=== PATIENT | female | born 1970 | race Two or more races ===

== ENCOUNTER 2017-02-13 14:58 | Emergency (ER) | payer MEDICAID ==
[~2017-02-13] VITALS: Ht 157.5 cm; Wt 82.1 kg
[2017-02-13 15:41] LABS: Basophils # (auto) 0 uL; Basophils % (auto) 0.2 % (0.0-2.0); Eosinophils # (auto) 0 uL; Eosinophils % (auto) 0.7 % (0.0-7.0); Hemoglobin 15.1 g/dL (12.2-16.2); Lymphocytes # (auto) 1.3 uL; Lymphocytes % (auto) 22.3 % (10.0-50.0); Mean Corpuscular Hemoglobin 32.2 pg (28.0-32.0); Mean Corpuscular Hgb Conc. 34.2 g/dL (32.0-36.0); Mean Corpuscular Volume 94.2 fL (80.0-100.0); Mean Platelet Volume 10.3 fL (7.4-10.4); Monocytes # (auto) 0.6 uL; Neutrophils % (auto) 66.8 % (37.0-80.0); Nucleated Red Blood Cells % 0.1 %; Platelet Count (auto) 159 10^3/uL (140-450); Red Cell Distribution Width 12.8 % (11.6-16.0); White Blood Cell 5.9 10^3/uL (4.4-10.8)
[2017-02-13 16:09] LABS: Albumin 3.7 g/dL (3.4-5.0); Alkaline Phosphatase 69 U/L (45-117); Anion Gap 5 (5-15); Aspartate Aminotransferase 7 U/L (15-37); BUN/Creatinine Ratio 23.6; Bilirubin, Total 0.5 mg/dL (0.2-1.0); Blood Urea Nitrogen 13 mg/dL (7-18); Calcium 8.7 mg/dL (8.5-10.1); Carbon Dioxide 28 mmol/L (21-32); Chloride 106 mmol/L (98-107); GFR African American 152 mL/min; GFR Non-African American 125 mL/min; Glucose 85 mg/dL (74-106); Magnesium 2.5 mg/dL (1.6-2.6); Potassium 3.5 mmol/L (3.5-5.1); Sodium 139 mmol/L (136-145); Total Protein 6.9 g/dL (6.4-8.2)
[2017-02-13] MEDS ORDERED: SODIUM CHLORIDE 0.9% 1,000 ML IV ONE (16:15)
[2017-02-13 17:30] LABS: Urine Bilirubin Negative (Negative); Urine Blood Negative /uL (Negative); Urine Color Yellow (Yellow); Urine Glucose Normal (Normal); Urine Ketone Negative (Negative); Urine Mucus FEW (None Seen); Urine Nitrite Negative (Negative); Urine RBC 2 /hpf (0 - 4); Urine Squamous Epithelial Cell MOD /hpf (<5); Urine Urobilinogen Normal (Negative); Urine pH 5.5 (5.0-8.0)
[2017-02-13 18:06] VITALS: BP 147/79
== END 2017-02-13 18:15 | disposition home or self-care (01) ==
LOC: ER 15:06
DX: E86.0 Dehydration (principal); N39.0 Urinary tract infection, site not specified; I95.9 Hypotension, unspecified; I10 Essential (primary) hypertension; J45.909 Unspecified asthma, uncomplicated
CPT/HCPCS: 36415; 71020; 80053; 81001; 83735; 84484; 85025; 93005; 96360; 99285; J7030

== ENCOUNTER 2021-06-18 18:00 | Emergency (ER) | payer MEDICAID ==
[~2021-06-18] VITALS: Ht 165.1 cm; Wt 81.6 kg
[2021-06-18 22:52] LABS: Basophils # (auto) 0 10 ^3/uL (0-0.2); Basophils % (auto) 0.2 % (0.0-2.0); Eosinophils # (auto) 0 10 ^3/uL (0-0.8); Eosinophils % (auto) 0.3 % (0.0-7.0); Hematocrit 45.6 % (36.0-46.0); Hemoglobin 15.3 g/dL (12.2-16.2); Lymphocytes # (auto) 0.6 10 ^3/uL (0.4-5.4); Lymphocytes % (auto) 7.6 % (10.0-50.0); Mean Corpuscular Hgb Conc. 33.7 g/dL (32.0-36.0); Mean Corpuscular Volume 92.2 fL (80.0-100.0); Monocytes # (auto) 0.5 10 ^3/uL (0-1.3); Monocytes % (auto) 6.7 % (0.0-12.0); Neutrophils # (auto) 6.3 10 ^3/uL (1.6-8.6); Neutrophils % (auto) 85.2 % (37.0-80.0); Nucleated Red Blood Cells % 0.1 %; Red Blood Cells 4.94 10^6/uL (4.0-5.20); White Blood Cell 7.4 10^3/uL (4.4-10.8)
[2021-06-18] MEDS ORDERED: IOHEXOL 350 MG/ML 100ML IJ ONE (23:25)
[2021-06-19 01:21] LABS: Albumin 3.7 g/dL (3.4-5.0); Calcium 8.4 mg/dL (8.5-10.1); Magnesium 3.1 mg/dL (1.6-2.6); Potassium 4.2 mmol/L (3.5-5.1)
[2021-06-19 01:25] LABS: BUN/Creatinine Ratio 26.8; Bilirubin, Total 0.5 mg/dL (0.2-1.0); Total Protein 6.7 g/dL (6.4-8.2)
[2021-06-19 08:40] VITALS: BP 126/71
== END 2021-06-19 09:06 | disposition short-term general hospital (02) ==
LOC: ER 18:00 → EDBD 18:00 → ER 06-19 09:06
DX: I60.9 Nontraumatic subarachnoid hemorrhage, unspecified (principal); J45.909 Unspecified asthma, uncomplicated; Z90.710 Acquired absence of both cervix and uterus
CPT/HCPCS: 36415; 70450; 70496; 70498; 71045; 80053; 80320; 83735; 84484; 85025; 93005; 99291; Q9967

== ENCOUNTER 2024-11-16 14:36 | Inpatient (IN) | payer MEDICAID ==
[~2024-11-16] VITALS: Ht 157.5 cm; Wt 86.0 kg
--- NOTE | 2024-11-16 15:28 | ED.PDOC ---
GI ASSESSMENT HPI Comments 54-year-old female presents with a chief complaint of abdominal pain. Patient states that she recently had a colonoscopy on last night. Patient mentions that her pain is localized to her bilateral upper quadrants and radiates into her right flank. Patient mentions that this pain feels similar to when she has flare up of her degenerative disc disease. Patient rates her pain a 9/10 and describes as sharp. PMHx: HLD, Heart Murmur, Asthma, HTN, Degenerative Disc Disease PSHx: Hysterectomy, Colonoscopy Alvalos: DDD HPI: Poor Historian. REVIEW OF SYSTEMS: CONSTITUTIONAL: Denies acute: fever, diaphoresis, chills, generalized weakness. HEAD: Denies acute: headache, photophobia Eyes: Denies acute: Double vision, vision loss, eye pain, eye discharge. EARS: Denies acute: tinnitus, hearing loss, ear discharge, ear pain, THROAT: Denies acute: sore throat, swelling, difficulty swallowing , pain with swallowing, change in voice. NECK: Denies acute: neck pain, neck swelling, stiff neck. HEART: Denies acute : chest pain, palpitations, LUNGS: Denies acute: SOB, wheezing, cough, hemoptysis ABDOMEN: Denies acute: Vomiting, diarrhea, melena , hematemesis, hematochezia SKIN: Denies acute: rash, redness, lesions, itchiness. EXTREMITIES: Denies acute: calf pain, numbness, tingling, weakness, denies pain in extremity. Denies acute: Low back pain. Neuro: Denies acute: focal neurological deficit, motor or sensory focal neurological deficit, tremors, seizure like activity, confusion, dizziness, change in mental status, loss of bowel or bladder function, cauda equina like symptoms. : Denies acute: dysuria, hematuria, flank pain, increase in urinary frequency. PSYCH: Denies acute: hallucination, suicidal ideation, homicidal ideation. FEMALE: Denies acute: abnormal vaginal bleeding, foul odor, unusual discharge. PHYSICAL EXAM: General: ---mild-----acute distress, awake and alert. Head: normocephalic, atraumatic. Neck: supple, trachea is midline, no swelling. Throat: Normal phonation. Eyes:, no erythema, no purulent discharge, no proptosis, no icterus. Heart: regular rate, regular rhythm, no significant murmur appreciated. Lungs: no apparent respiratory distress, Able to speak in full sentences. No wheezing, no rhonchi, no crackles. No stridors Clear to auscultation bilaterally. Abdomen: Mild nonspecific generalized bilateral mid abdomen tender to palpation, non distended, soft, no guarding, no rebound, + bowel sounds. Neuro: Awake, Alert, oriented to name, self, situation, follows commands GCS=15. Speech is normal. Skin: no petechia, no purpura, no cyanosis, non-pale, not jaundice. Lower extremities: --no - Pitting edema no deformity, no focal swelling, no calf TTP. Makes eye contact. moves all four extremities. Face: no apparent facial droop. No CVA tenderness to percussion bilaterally. Ambulating in the ED independently. No nuchal rigidity, Kernig's sign, Brudzinski's sign, no meningeal signs. ED COURSE: Chief Complaint: Abdominal Pain Time Seen by MD: 15:20 Primary Care Provider: none Reviewed Notes: Medications, Allergies Allergies: Coded Allergies: NO KNOWN ALLERGIES (Unverified , 07/30/15) Home Meds Reported Medications Atorvastatin Calcium (Lipitor) 80 Mg Tab, 1 TAB PO DAILY, #30 TAB 5 Refills 11/17/24 Metoprolol Succinate (Metoprolol Succinate Er) 25 Mg Tab, 1 TAB PO DAILY 11/17/24 Atorvastatin Calcium (ATORVASTATIN CALCIUM) 80 Mg Tab, 1 TAB PO DAILY 11/17/24 Albuterol Sulfate (Albuterol Sulfate Hfa) 108 Mcg/Act Aer, INH 11/17/24 Information Source: Patient Mode of Arrival: Ambulatory Past Medical History PAST MEDICAL HISTORY: Asthma, High Lipids, HTN Surgical History: Hysterectomy ZINC PLATER History: No Pertinent ZINC PLATER History Family History Family History: Reviewed,noncontributory to illness Social History Smoker: Non-Smoker Alcohol: Occasionally Drugs: Denies Drug Use Lives In: Home Was a procedure done? Was a procedure done?: No GI differential Dx Differential Diagnosis: Other (DDX include Diverticulitis, colitis, gastroenteritis, acute abdomen, SBO, enteritis, constipation, volvulus, appendicitis, Gallbladder disease, choledocolithiasis, ascending cholangitis, pancreatitis, intraAbdominal mass/neoplasm, hepatitis, UTI, pylonephritis, kidney stone, aneurysm, dissection, Inflammatory bowel disease, gastroparesis, ischemic bowel, ovarian torsion, ovarian cyst/mass, tubo-ovarian abscess, , PID, STD.) X-Ray, Labs, Meds, VS Vital Signs Date Time Temp Pulse Resp B/P (MAP) Pulse Ox O2 Delivery O2 Flow Rate FiO2 11/16/24 19:10 98.2 81 20 112/70 (84) 98 98.2 11/16/24 18:45 81 20 98 Room Air* 0 21 11/16/24 16:48 98.6 75 24 129/70 (89) 96 98.6 11/16/24 15:41 84 11/16/24 14:51 98.2 81 14 133/70 (91) 97 98.2 Lab Test 11/16/24 16:19 11/16/24 15:22 11/16/24 14:57 Range/Units Troponin I High Sensitivity 3 L 4 </=34 ng/L Triglycerides Level 87 < 150 mg/dL Cholesterol Level 154 < 200 mg/dL LDL Cholesterol 81 < 100 mg/dL HDL Cholesterol 55 40-59 mg/dL White Blood Count 7.3 4.4-10.8 10^3/uL Red Blood Count 4.80 4.0-5.20 10^6/uL Hemoglobin 15.2 12.2-16.2 g/dL Hematocrit 43.8 36.0-46.0 % Mean Corpuscular Volume 91.4 80.0-100.0 fL Mean Corpuscular Hemoglobin 31.7 28.0-32.0 pg Mean Corpuscular Hemoglobin Concent 34.7 32.0-36.0 g/dL Red Cell Distribution Width 13.4 11.8-14.3 % Platelet Count 141 140-450 10^3/uL Mean Platelet Volume 9.6 6.9-10.8 fL Neutrophils (%) (Auto) 68.1 37.0-80.0 % Lymphocytes (%) (Auto) 20.5 10.0-50.0 % Monocytes (%) (Auto) 9.9 0.0-12.0 % Eosinophils (%) (Auto) 1.0 0.0-7.0 % Basophils (%) (Auto) 0.5 0.0-2.0 % Neutrophils # (Auto) 5.0 1.6-8.6 10 ^3/uL Lymphocytes # (Auto) 1.5 0.4-5.4 10 ^3/uL Monocytes # (Auto) 0.7 0-1.3 10 ^3/uL Eosinophils # (Auto) 0.1 0-0.8 10 ^3/uL Basophils # (Auto) 0 0-0.2 10 ^3/uL Nucleated Red Blood Cells 0.1 % Sodium Level 147 H 136-145 mmol/L Potassium Level 3.9 3.5-5.1 mmol/L Chloride Level 108 H 98-107 mmol/L Carbon Dioxide Level 31 20-31 mmol/L Anion Gap 8 5-15 Blood Urea Nitrogen 7 L 9-23 mg/dL Creatinine 0.63 0.550-1.02 mg/dL Glomerular Filtration Rate Calc 104 >90 mL/min BUN/Creatinine Ratio 11.1 10.0-20.0 Serum Glucose 87 74-106 mg/dL Hemoglobin A1c 5.4 <5.7 % A1C Lactic Acid Level 1.0 0.4-2.0 mmol/L Calcium Level 10.0 8.7-10.4 mg/dL Total Bilirubin 1.6 H 0.2-1.0 mg/dL Aspartate Amino Transferase (AST) 99 H 13-40 U/L Alanine Aminotransferase (ALT) 100 H 7-40 U/L Alkaline Phosphatase 135 H 46-116 U/L Total Protein 6.9 5.7-8.2 g/dL Albumin 4.8 3.2-4.8 g/dL Lipase 29 12-53 U/L Hepatitis A IgM Antibody Pending Hepatitis B Surface Antigen Pending Hepatitis B Core IgM Antibody Pending Hepatitis C Antibody Pending Urine Color Yellow Yellow Urine Clarity Turbid H Clear Urine pH 8.5 5.0-9.0 Urine Specific [place] 1.023 1.001-1.035 Urine Protein Trace H Negative Urine Ketones Negative Negative Urine Blood Negative Negative /uL Urine Nitrite Negative Negative Urine Bilirubin Negative Negative Urine Urobilinogen Normal Negative mg/dL Urine Leukocyte Esterase Negative Negative /uL Urine RBC 2 0 - 4 /hpf Urine Microscopic WBC 3 0-5 /HPF Urine Squamous Epithelial Cells Mod <5 /hpf Urine Amorphous Crystals Few None Seen /hpf Urine Bacteria Few H None Seen /hpf Urine Mucus Few None Seen Urine Glucose Normal Normal mg/dL Urine Opiates Screen Neg NEGATIVE Urine Fentanyl Screen Neg NEGATIVE Urine Barbiturates Screen Neg NEGATIVE Urine Phencyclidine Screen Neg NEGATIVE Urine Amphetamines Screen Neg NEGATIVE Urine Benzodiazepines Screen Neg NEGATIVE Urine Cocaine Screen Neg NEGATIVE Urine Cannabinoids Screen Neg NEGATIVE PATIENT: JAK CANCHOLA ACCT: [id number] UNIT: [id number] : 1970 LOC: ER ROOM / BED: / AGE / SEX: 54 / F ADM STATUS: REG ER SERVICE 1502 ORDERING PHYSICIAN: ANTONIO BOLIVAR DO PROCEDURE(s): ABPL - CT AB PEL WO CON-NO ORAL OR IV REASON: upper abd pain ORDER NUMBER(s): [id number], ACCESSION NUMBER(s): [id number] Exam: CT CT AB PEL WO CON-NO ORAL OR IV History: upper abd pain Comparison Study: None TECHNIQUE: Multidetector CT of the abdomen was performed from lung bases to pubic symphysis. Imaging was performed without IV contrast. Axial, coronal and sagittal multiplanar reformats were obtained from the axial data set by the technologist. Radiation Dose Information: CT Dose: CTDI volume is 11.66 mGy. Dose-length product is 632.58 mGy*cm FINDINGS: Evaluation of solid organs is limited due to lack of intravenous contrast use. Findings: Lung Bases: No acute or significant lung base finding. Normal heart size. No pleural or pericardial effusion. Liver: The liver is normal in size. No focal lesions. Gallbladder and Biliary Tree: Unremarkable Spleen: Unremarkable Pancreas: The pancreas is grossly normal in appearance. Adrenal Glands: Unremarkable Kidneys: Kidneys are grossly normal without calculi or hydronephrosis. Bladder: Grossly unremarkable for degree of distention. Bowel: The stomach is grossly normal in appearance. Small bowel and colon are no rmal in caliber and distribution. The appendix is not visualized; however, no secondary findings of acute appendicitis identified. Ascites: Absent Lymphadenopathy: No mesenteric, retroperitoneal or periportal lymphadenopathy. Abdominal Wall and Mesentery: Unremarkable. Vasculature: The visualized abdominal aorta is normal in size and caliber. Evaluation of abdominal and pelvic vessels is limited due to lack of intravenous contrast. Pelvic Organs: Unremarkable Musculoskeletal: No aggressive focal bony lesions, acute fractures or dislocation. Soft tissues: Unremarkable IMPRESSION: 1. No findings of bowel obstruction. Large stool burden throughout the colon. 2. No calcified gallstones pancreas appears normal. 3. No nephrolithiasis or hydronephrosis. Radiation optimization: All CT scans at this facility use at least one of these dose optimization techniques: automated exposure control mA and/or kV adjustment per patient size (includes targeted exams where dose is matched to clinical indication) or iterative reconstruction. ATED BY: HALIMA RICHARDS Jr., DO DICTATED DATE/TIME: 11/16/24 152 SIGNED BY: HALIMA RICHARDS Jr., SIGNED DATE/TIME: 11/16/241528 Time of 1ST Reevaluation: 15:50 Reevaluation 1ST: Unchanged Patient Education/Counseling: Diagnosis, Treatment Family Education/Counseling: No Family Present Comments Patient presented with the above HPI.--abdominal pain----workup was initiated. patient was found with the above mentioned diagnosis. the following medications were ordered: please refer to order lists of meds and tests obtained by myself Dr. Bolivar. Patient ED course and VS have been stabilized. Patient has been reassessed in the ED and remained in a stable condition. Pertinent incidental findings were discussed with the patient and/or family. Patient/family voices understanding and is agreeable with plan. Patient has been observed in the ED adequate length of time to insure improvement/stability. Escalation of care considered: Consideration of escalation to observation or admission Patient was found with elevated LFTs and constipation. Patient was ADMITTED to the medicine team for further evaluation and treatment of their presentation. All the reports of any imaging studies that were ordered by myself were reviewed by myself. Departure 1 Departure Time of Disposition: 15:48 Impression: Primary Impression: Constipation Additional Impressions: Abdominal pain Elevated LFTs Disposition: ADMITTED INPATIENT Admit to: Tele Condition: Guarded Additional Instructions: [place] [id number] Ph: [phone] DIAGNOSTIC IMAGING Diagnostic Imaging Report : [id number] Signed PATIENT: JAK CANCHOLA ACCT: [id number] UNIT: [id number] : 1970 LOC: ER ROOM / BED: / AGE / SEX: 54 / F ADM STATUS: REG ER SERVICE 1502 ORDERING PHYSICIAN: ANTONIO BOLIVAR DO PROCEDURE(s): ABPL - CT AB PEL WO CON-NO ORAL OR IV REASON: upper abd pain ORDER NUMBER(s): [id number], ACCESSION NUMBER(s): [id number] Exam: CT CT AB PEL WO CON-NO ORAL OR IV History: upper abd pain Comparison Study: None TECHNIQUE: Multidetector CT of the abdomen was performed from lung bases to pubic symphysis. Imaging was performed without IV contrast. Axial, coronal and sagittal multiplanar reformats were obtained from the axial data set by the technologist. Radiation Dose Information: CT Dose: CTDI volume is 11.66 mGy. Dose-length product is 632.58 mGy*cm FINDINGS: Evaluation of solid organs is limited due to lack of intravenous contrast use. Findings: Lung Bases: No acute or significant lung base finding. Normal heart size. No pleural or pericardial effusion. Liver: The liver is normal in size. No focal lesions. Gallbladder and Biliary Tree: Unremarkable Spleen: Unremarkable Pancreas: The pancreas is grossly normal in appearance. Adrenal Glands: Unremarkable Kidneys: Kidneys are grossly normal without calculi or hydronephrosis. Bladder: Grossly unremarkable for degree of distention. Bowel: The stomach is grossly normal in appearance. Small bowel and colon are normal in caliber and distribution. The appendix is not visualized; however, no secondary findings of acute appendicitis identified. Ascites: Absent Lymphadenopathy: No mesenteric, retroperitoneal or periportal lymphadenopathy. Abdominal Wall and Mesentery: Unremarkable. Vasculature: The visualized abdominal aorta is normal in size and caliber. Evaluation of abdominal and pelvic vessels is limited due to lack of intravenous contrast. Pelvic Organs: Unremarkable Musculoskeletal: No aggressive focal bony lesions, acute fractures or dislo cation. Soft tissues: Unremarkable IMPRESSION: 1. No findings of bowel obstruction. Large stool burden throughout the colon. 2. No calcified gallstones pancreas appears normal. 3. No nephrolithiasis or hydronephrosis. Radiation optimization: All CT scans at this facility use at least one of these dose optimization techniques: automated exposure control mA and/or kV ad justment per patient size (includes targeted exams where dose is matched to clinical indication) or iterative reconstruction. ATED BY: HALIMA RICHARDS Jr., DO DICTATED DATE/TIME: 11/16/24 152 SIGNED BY: HALIMA RICHARDS Jr., SIGNED DATE/TIME: 11/16/241528 CC: Discharged With: Self Critical Care Note Critical Care Time?: No Heart Score Heart Score: Heart Score Response (Comments) Value History N/A 0 EKG N/A 0 Age N/A 0 Risk Factors N/A 0 Troponin N/A 0 Total 0 I personally scribed for ANTONIO BOLIVAR DO ([email or web address]) on 11/16/24 at 15:28. Electronically submitted by Matt Rahman ([email or web address]). I personally scribed for ANTONIO BOLIVAR DO ([email or web address]) on 11/16/24 at 16:05. Electronically submitted by Matt Rahman ([email or web address]). ANTONIO BOLIVAR DO Nov 16, 2024 15:28
--- NOTE | 2024-11-16 15:31 | DVH ---
Exam: CT CT AB PEL WO CON-NO ORAL OR IV History: upper abd pain Comparison Study: None TECHNIQUE: Multidetector CT of the abdomen was performed from lung bases to pubic symphysis. Imaging was performed without IV contrast. Axial, coronal and sagittal multiplanar reformats were obtained fr om the axial data set by the technologist. Radiation Dose Information: CT Dose: CTDI volume is 11.66 mGy. Dose-length product is 632.58 mGy*cm FINDINGS: Evaluation of solid organs is limited due to lack of intravenous contrast use. Findings: Lung Bases: No acute or significant lung base finding. Normal heart size. No pleural or pericardial effusion. Liver: The liver is normal in size. No focal lesions. Gallbladder and Biliary Tree: Unremarkable Spleen: Unremarkable Pancreas: The pancreas is grossly normal in appearance. Adrenal Glands: Unremarkable Kidneys: Kidneys are grossly normal without calculi or hydronephrosis. Bladder: Grossly unremarkable for degree of distention. Bowel: The stomach is grossly normal in appearance. Small bowel and colon are normal in caliber and d istribution. The appendix is not visualized; however, no secondary findings of acute appendicitis id entified. Ascites: Absent Lymphadenopathy: No mesenteric, retroperitoneal or periportal lymphadenopathy. Abdominal Wall and Mesentery: Unremarkable. Vasculature: The visualized abdominal aorta is normal in size and caliber. Evaluation of abdominal a nd pelvic vessels is limited due to lack of intravenous contrast. Pelvic Organs: Unremarkable Musculoskeletal: No aggressive focal bony lesions, acute fractures or dislocation. Soft tissues: Unremarkable IMPRESSION: 1. No findings of bowel obstruction. Large stool burden throughout the colon. 2. No calcified gallstones pancreas appears normal. 3. No nephrolithiasis or hydronephrosis. Radiation optimization: All CT scans at this facility use at least one of these dose optimization te chniques: automated exposure control mA and/or kV adjustment per patient size (includes targeted exa ms where dose is matched to clinical indication) or iterative reconstruction.
[2024-11-16 15:34] LABS: Basophils # (auto) 0 10 ^3/uL (0-0.2); Basophils % (auto) 0.5 % (0.0-2.0); Eosinophils # (auto) 0.1 10 ^3/uL (0-0.8); Hematocrit 43.8 % (36.0-46.0); Hemoglobin 15.2 g/dL (12.2-16.2); Lymphocytes # (auto) 1.5 10 ^3/uL (0.4-5.4); Lymphocytes % (auto) 20.5 % (10.0-50.0); Mean Corpuscular Hemoglobin 31.7 pg (28.0-32.0); Mean Corpuscular Hgb Conc. 34.7 g/dL (32.0-36.0); Mean Corpuscular Volume 91.4 fL (80.0-100.0); Monocytes # (auto) 0.7 10 ^3/uL (0-1.3); Monocytes % (auto) 9.9 % (0.0-12.0); Neutrophils % (auto) 68.1 % (37.0-80.0); Nucleated Red Blood Cells % 0.1 %; Platelet Count (auto) 141 10^3/uL (140-450); Red Cell Distribution Width 13.4 % (11.8-14.3); White Blood Cell 7.3 10^3/uL (4.4-10.8)
[2024-11-16 15:41] LABS: Urine Amorphous Crystal FEW /hpf (None Seen); Urine Bacteria FEW /hpf (None Seen); Urine Blood Negative /uL (Negative); Urine Clarity Turbid (Clear); Urine Color Yellow (Yellow); Urine Mucus FEW (None Seen); Urine Protein, UAD TRACE (Negative); Urine Specific Gravity 1.023 (1.001-1.035); Urine Squamous Epithelial Cell MOD /hpf (<5); Urine Urobilinogen Normal (Negative); Urine WBC 3 /HPF (0-5); Urine pH 8.5 (5.0-9.0)
--- NOTE | 2024-11-16 15:42 | ECG ---
[facility] Test Date: 2024-11-16 Test Time: 15:41:07 Pat Name: JAK CANCHOLA Department: ED Room: Gender: F Inker Machine: [id number] : 1970 Requested By: ANTONIO BOLIVAR Order Number: [id number] Reading MD: Joel Treadwell Measurements Intervals [place] Rate: 84 P: 57 PA: 140 QRS: 45 QRSD: 96 T: 29 QT: 358 QTc: 424 Interpretive Statements Sinus rhythm Ventricular premature complex Electronically Signed On 11-16-2024 21:16:56 PDT by Joel Treadwell Please click the below link to view image of tracing.
[2024-11-16 15:54] LABS: Albumin 4.8 g/dL (3.2-4.8); Anion Gap 8 (5-15); BUN/Creatinine Ratio 11.1 (10.0-20.0); Glucose 87 mg/dL (74-106); Potassium 3.9 mmol/L (3.5-5.1); Total Protein 6.9 g/dL (5.7-8.2)
[2024-11-16 15:57] LABS: Alanine Aminotransferase 100 U/L (7-40); Alkaline Phosphatase 135 U/L (46-116); Aspartate Aminotransferase 99 U/L (13-40); Bilirubin, Total 1.6 mg/dL (0.2-1.0); Blood Urea Nitrogen 7 mg/dL (9-23); Carbon Dioxide 31 mmol/L (20-31); Chloride 108 mmol/L (98-107); Sodium 147 mmol/L (136-145)
[2024-11-16 16:09] LABS: Lipase 29 U/L (12-53)
[2024-11-16 18:45] VITALS: PULSE 81; RESP 20; O2SAT 98
--- NOTE | 2024-11-16 21:36 | DVH ---
INDICATION: R/O choledocolithiasis, biliary obstruction TECHNIQUE: Ultrasound liver Multiple real-time sonographic images of the abdomen were obtained. COMPARISON: None FINDINGS: The liver is homogenous in echogenicity. The liver measures 14.63 cm. No intrahepatic bili lele ductal dilatation is noted. The gallbladder wall measures 1.61 cm cm and is unremarkable. Gallstones are noted in the gallbladd er. The common duct measures 0.59 cm and is unremarkable. No pericholecystic fluid is noted. The right kidney measures 9.42 cm. No hydronephrosis. The pancreas is obscured by bowel gas IMPRESSION: 1. Liver measures 14.65 cm. 2. Cholelithiasis with thickened gallbladder wall. Negative sonographic eli's sign and no dilated common bile duct.
[2024-11-16 22:38] LABS: Triglycerides 87 mg/dL (< 150)
[2024-11-16 22:39] LABS: LDL Cholesterol 81 mg/dL (< 100)
[2024-11-16 22:40] LABS: HDL Cholesterol 55 mg/dL (40-59)
[2024-11-16 22:41] LABS: Cholesterol 154 mg/dL (< 200)
[2024-11-16 22:47] LABS: Amphetamine Screen, Urine Neg (NEGATIVE); Barbiturate Scree,Urine Neg (NEGATIVE); Benzodiazephine Screen, Urine Neg (NEGATIVE); Cannabinoid Screen, Urine Neg (NEGATIVE); Cocaine Screen, Urine Neg (NEGATIVE); Opiate Scree,Urine Neg (NEGATIVE); Phencyclidine Screen, Urine Neg (NEGATIVE)
--- NOTE | 2024-11-16 22:50 | DVHHPRES ---
History of Present Illness Resident Creating Document: ERIKA CHACON History of Present Illness This is a 54-year-old female with past medical history of hypertension, dyslipidemia, asthma, degenerative disc disease, history of heart murmur if who presented to the ED with chief complaint of acute abdominal pain. The patient states that the symptoms started overnight and early the morning before coming to the ED. the patient states that the pain is localized in the epigastric and right upper quadrant region of the abdomen that radiates towards the right upper back. The patient described the pain as a cramping type of pain rated as a 7/10 on the pain scale. The patient also reports sore throat nausea but no vomiting. Patient states that eating does not change the pattern rate the pain. The patient denies chest pain, shortness of breath, fever/chills, diarrhea or any other additional symptoms. Patient states that last bowel movement was yesterday but had failed constipated recently. Upon admission, CBC and CMP were grossly unremarkable except for the total bilirubin, AST, ALT and alkaline phosphatase which were all elevated. Initial CT scan of the abdomen and pelvis showing large stool burden throughout the colon but no additional findings. Based on altered labs we ordered right upper quadrant ultrasound to rule out choledocholithiasis but ultrasound showed cholelithiasis with thickened gallbladder wall but no dilated common bile duct. We will start the patient on IV fluids, pain medications and we will admit the patient for further assessment and management. Past medical history: Hypertension, dyslipidemia, asthma, degenerative disc disease, heart murmur Home medications: Metoprolol succinate 25 mg daily, atorvastatin 80 mg daily, albuterol rescue inhaler, budesonide 0.5 mg b.i.d. Surgical history: Hysterectomy, colonoscopy Social history: Denies drug consumption, alcohol or smoking. Cardiovascular: HTN, hyperipidemia Pulmonary: Asthma Musculoskeletal: Other (Degenerative disc disease) Family History: None Smoke: No ALCOHOL: none Drugs: None Lives: with Family Domestic Violence: Neg Review of Systems Constitutional: No: Fever, Chills, Sweats, Weakness, Malaise, Other Eyes: No: Pain, Vision change, Conjunctivae inflammation, Eyelid inflammation, Other, Redness ENT: No: Ear pain, Ear discharge, Nose pain, Nose discharge, Nose congestion, Mouth pain, Mouth swelling, Throat pain, Throat swelling, Other Respiratory: No: Cough, Dry, Shortness of breath, SOB with excertion, Wheezing, Hemoptysis, Pleuritic Pain, Sputum, Wheezing, Other Cardiovascular: No: Chest Pain, Palpitations, Orthopnea, Paroxysmal Noc. Dyspnea, Edema, Lt Headedness, Other Gastrointestinal: Nausea, Abdominal Pain; No: Vomiting, Diarrhea, Constipation, Melena, Hematochezia, Other Genitourinary: No Dysuria, No Frequency, No Incontinence, No Hematuria, No Retention, No Other Musculoskeletal: No: other, neck pain, shoulder pain, arm pain, back pain, hand pain, leg pain, foot pain Skin: No: Rash, Lesions, Jaundice, Bruising, Other Neurological: No: Weakness, Numbness, Incoordination, Change in speech, Confusion, Seizures, Other Allergies: Coded Allergies: NO KNOWN ALLERGIES (Unverified , 07/30/15) Exam Vital Signs Vital Signs Date Time Temp Pulse Resp B/P (MAP) Pulse Ox O2 Delivery O2 Flow Rate FiO2 11/16/24 19:10 98.2 81 20 112/70 (84) 98 98.2 11/16/24 18:45 Room Air* 0 21 General Appearance: Alert, Oriented X3, Cooperative, No acute distress HEENT: Atraumatic, PERRLA, EOMI, Mucous membr. moist/pink Respiratory: Clear to auscultation, Normal air movement Cardiovascular: Regular rate, Normal S1, Normal S2, No murmurs Abdominal: Normal bowel sounds, Soft, Other (There is tenderness to palpation at the epigastric region right and left upper quadrants of the abdomen) Extremities: No clubbing, No cyanosis, No edema, Normal pulses, No tenderness/swelling Skin: No rashes, No breakdown, No significant lesion Neuro: Normal gait, Normal speech, Strength at 5/5 X4 ext, Normal tone, Sensation intact, Cranial nerves 3-12 NL, Reflexes 2+ Psych/Mental Status: Mental status NL, Mood NL Labs/Xrays Labs Test 11/16/24 16:19 11/16/24 15:22 11/16/24 14:57 Range/Units Troponin I High Sensitivity 3 L </=34 ng/L White Blood Count 7.3 4.4-10.8 10^3/uL Red Blood Count 4.80 4.0-5.20 10^6/uL Hemoglobin 15.2 12.2-16.2 g/dL Hematocrit 43.8 36.0-46.0 % Mean Corpuscular Volume 91.4 80.0-100.0 fL Mean Corpuscular Hemoglobin 31.7 28.0-32.0 pg Mean Corpuscular Hemoglobin Concent 34.7 32.0-36.0 g/dL Red Cell Distribution Width 13.4 11.8-14.3 % Platelet Count 141 140-450 10^3/uL Mean Platelet Volume 9.6 6.9-10.8 fL Neutrophils (%) (Auto) 68.1 37.0-80.0 % Lymphocytes (%) (Auto) 20.5 10.0-50.0 % Monocytes (%) (Auto) 9.9 0.0-12.0 % Eosinophils (%) (Auto) 1.0 0.0-7.0 % Basophils (%) (Auto) 0.5 0.0-2.0 % Neutrophils # (Auto) 5.0 1.6-8.6 10 ^3/uL Lymphocytes # (Auto) 1.5 0.4-5.4 10 ^3/uL Monocytes # (Auto) 0.7 0-1.3 10 ^3/uL Eosinophils # (Auto) 0.1 0-0.8 10 ^3/uL Basophils # (Auto) 0 0-0.2 10 ^3/uL Nucleated Red Blood Cells 0.1 % Sodium Level 147 H 136-145 mmol/L Potassium Level 3.9 3.5-5.1 mmol/L Chloride Level 108 H 98-107 mmol/L Carbon Dioxide Level 31 20-31 mmol/L Anion Gap 8 5-15 Blood Urea Nitrogen 7 L 9-23 mg/dL Creatinine 0.63 0.550-1.02 mg/dL Glomerular Filtration Rate Calc 104 >90 mL/min BUN/Creatinine Ratio 11.1 10.0-20.0 Serum Glucose 87 74-106 mg/dL Lactic Acid Level 1.0 0.4-2.0 mmol/L Calcium Level 10.0 8.7-10.4 mg/dL Total Bilirubin 1.6 H 0.2-1.0 mg/dL Aspartate Amino Transferase (AST) 99 H 13-40 U/L Alanine Aminotransferase (ALT) 100 H 7-40 U/L Alkaline Phosphatase 135 H 46-116 U/L Total Protein 6.9 5.7-8.2 g/dL Albumin 4.8 3.2-4.8 g/dL Lipase 29 12-53 U/L Urine Color Yellow Yellow Urine Clarity Turbid H Clear Urine pH 8.5 5.0-9.0 Urine Specific [place] 1.023 1.001-1.035 Urine Protein Trace H Negative Urine Ketones Negative Negative Urine Blood Negative Negative /uL Urine Nitrite Negative Negative Urine Bilirubin Negative Negative Urine Urobilinogen Normal Negative mg/dL Urine Leukocyte Esterase Negative Negative /uL Urine RBC 2 0 - 4 /hpf Urine Microscopic WBC 3 0-5 /HPF Urine Squamous Epithelial Cells Mod <5 /hpf Urine Amorphous Crystals Few None Seen /hpf Urine Bacteria Few H None Seen /hpf Urine Mucus Few None Seen Urine Glucose Normal Normal mg/dL Assessment/Plan Assessment/Plan Assessment/plan Acute abdominal pain likely due to Cholelithiasis Acute cholelithiasis R/O Acute cholecystitis Acute constipation Possible acute gastroenteritis Acute transaminitis Ruled out choledocholithiasis Ruled out acute pancreatitis -acute epigastric/ right upper quadrant pain radiating to left upper quadrant and right upper back -CT of the abdomen and pelvis showing large stool burden throughout the colon -Abdominal ultrasound showed cholelithiasis with thickened gallbladder but no dilated common bile duct -Consider HIDA scan -place patient NPO -IV fluids, NS 0.9% at 100 cc/hour -pain medication -Lactulose and miralax Once -Ordered acute hepatitis panel -Lipase was on normal range Goals of care discussed with patient at bedside for >35min, FULL CODE Plan discussed with Dr. Castellon Plan discussed with: Patient My Orders Orders - ERIKA CHACON RESIDENT Procedure Category Date Status Time LIVER US 11/16/24 Resulted 20:50 Admit ADMIT 11/16/24 Transmitted 22:07 Code Status CODE 11/16/24 Transmitted 22:07 Vital Signs MARGOT 11/16/24 In Process 22:07 Review Orders With MARGOT 11/16/24 In Process Adm 22:07 Encourage Activity As MARGOT 11/16/24 In Process Tolerate 22:07 Npo (Nothing By DIET 11/17/24 Transmitted Mouth) Diet Breakfast Acetaminophen Tablet PHA 11/16/24 In Process (Tylenol Tablet) 22:15 Notify Of Changes MARGOT 11/16/24 In Process From Base 22:07 Advance Directive MARGOT 11/16/24 In Process 22:07 Complete Blood Count LAB 11/17/24 Verified 04:00 Lipid Panel LAB 11/16/24 In Process 22:07 Patient Condition ORDERS 11/16/24 Transmitted 22:07 Allergies MARGOT 11/16/24 In Process 22:07 Hydrocodone-Acet PHA 11/16/24 Logged 5/325mg Tab ([place] 22:15 Drug Screen LAB 11/16/24 In Process 22:07 Hemoglobin A1c LAB 11/16/24 In Process 22:07 Comprehensive LAB 11/17/24 Verified Metabolic Panel 04:00 Sodium Chloride 0.9% PHA 11/16/24 Logged 22:15 Date of Service: Nov 16, 2024 Billing Provider: MARC CASTELLON MD Common Visit Codes: 54364-[id number] INP/OBS CARE (HIGH) Secondary Visit Codes: 41669-[id number] CARE PLAN 30 MINUTES ERIKA CHACON RESIDENT Nov 16, 2024 22:50
[2024-11-17] VITALS (9 sets, daily range): BP systolic 114–137; BP diastolic 65–91; PULSE 69–98; RESP 16–18; TEMP 97–100; O2SAT 79–98
[2024-11-17] MEDS: POLYETHYLENE GLYCOL 17 GM PWDR PO ONE (00:27)
[2024-11-17] MEDS: LACTULOSE 20Gm/30ML SOLN PO ONE (00:27)
[2024-11-17] MEDS ORDERED: METO25TA93 PO (00:52)
[2024-11-17] MEDS ORDERED: ALBU108A5 INH (00:52)
[2024-11-17] MEDS ORDERED: ATOR-47 PO (00:52)
[2024-11-17] MEDS ORDERED: ATOR80TA PO (00:53)
[2024-11-17] MEDS: SODIUM CHLORIDE 0.9% 1,000 ML IV ONE (01:50)
[2024-11-17] MEDS: ACETAMINOPHEN 325 MG TAB PO PRN (02:04)
[2024-11-17 06:35] LABS: Basophils # (auto) 0 10 ^3/uL (0-0.2); Basophils % (auto) 0.2 % (0.0-2.0); Eosinophils # (auto) 0.1 10 ^3/uL (0-0.8); Eosinophils % (auto) 2.2 % (0.0-7.0); Hematocrit 41.7 % (36.0-46.0); Hemoglobin 14.2 g/dL (12.2-16.2); Lymphocytes # (auto) 1.1 10 ^3/uL (0.4-5.4); Lymphocytes % (auto) 22.9 % (10.0-50.0); Mean Corpuscular Hemoglobin 31.4 pg (28.0-32.0); Mean Corpuscular Volume 92.5 fL (80.0-100.0); Monocytes # (auto) 0.4 10 ^3/uL (0-1.3); Monocytes % (auto) 8.8 % (0.0-12.0); Neutrophils # (auto) 3.1 10 ^3/uL (1.6-8.6); Neutrophils % (auto) 65.9 % (37.0-80.0); Platelet Count (auto) 122 10^3/uL (140-450); Red Blood Cells 4.51 10^6/uL (4.0-5.20); Red Cell Distribution Width 13.2 % (11.8-14.3); White Blood Cell 4.8 10^3/uL (4.4-10.8)
[2024-11-17 06:53] LABS: Albumin 3.9 g/dL (3.2-4.8); Anion Gap 9 (5-15); Calcium 8.7 mg/dL (8.7-10.4); Carbon Dioxide 27 mmol/L (20-31); Glucose 94 mg/dL (74-106); Sodium 144 mmol/L (136-145); Total Protein 5.8 g/dL (5.7-8.2)
[2024-11-17 06:54] LABS: Alanine Aminotransferase 81 U/L (7-40); Aspartate Aminotransferase 64 U/L (13-40); Bilirubin, Total 1.6 mg/dL (0.2-1.0); Blood Urea Nitrogen 7 mg/dL (9-23); Chloride 108 mmol/L (98-107); Potassium 3.5 mmol/L (3.5-5.1)
[2024-11-17 07:44] LABS: Alkaline Phosphatase 125 U/L (46-116)
[2024-11-17] MEDS ORDERED: ALBUTEROL SULF 2.5 MG/0.5ML(0.5%) NEB SOLN NEB PRN (07:45)
[2024-11-17 12:15] LABS: Magnesium 2.1 mg/dL (1.6-2.6)
[2024-11-17] MEDS ORDERED: ERGOCALCIFEROL 50,000 UNIT(1.25MG) CAP PO SCH (13:00)
--- NOTE | 2024-11-17 13:03 | DVHPNRES ---
Progress Note Date Seen: Nov 17, 2024 Resident Creating Document: BRITTNEE ACEVES RESIDENT Medical Necessity Reason Pt with a Central, PICC or Fol: No Subjective Review of Systems This is a 54-year-old female with past medical history of hypertension, dyslipidemia, asthma, degenerative disc disease, history of heart murmur if who presented to the ED with chief complaint of acute abdominal pain. The patient states that the symptoms started overnight and early the morning before coming to the ED. the patient states that the pain is localized in the epigastric and right upper quadrant region of the abdomen that radiates towards the right upper back. The patient described the pain as a cramping type of pain rated as a 7/10 on the pain scale. The patient also reports sore throat nausea but no vomiting. Patient states that eating does not change the pattern rate the pain. The patient denies chest pain, shortness of breath, fever/chills, diarrhea or any other additional symptoms. Patient states that last bowel movement was yesterday but had failed constipated recently. Upon admission, CBC and CMP were grossly unremarkable except for the total bilirubin, AST, ALT and alkaline phosphatase which were all elevated. Initial CT scan of the abdomen and pelvis showing large stool burden throughout the colon but no additional findings. Based on altered labs we ordered right upper quadrant ultrasound to rule out choledocholithiasis but ultrasound showed cholelithiasis with thickened gallbladder wall but no dilated common bile duct. We will start the patient on IV fluids, pain medications and we will admit the patient for further assessment and management. Past medical history: Hypertension, dyslipidemia, asthma, degenerative disc disease, heart murmur Home medications: Metoprolol succinate 25 mg daily, atorvastatin 80 mg daily, albuterol rescue inhaler, budesonide 0.5 mg b.i.d. Surgical history: Hysterectomy, colonoscopy Social history: Denies drug consumption, alcohol or smoking. Patient seen and examined at the bedside. HIDA scan pending. Objective vital signs Vital Sign Date Time Temp Pulse Resp B/P (MAP) Pulse Ox O2 Delivery O2 Flow Rate FiO2 11/17/24 09:00 98.3 69 16 126/72 (90) 96 98.3 11/17/24 08:00 Room Air* 0 21 Total Intake and Output 11/16/24 11/16/24 11/17/24 15:00 23:00 07:00 Intake Total 300 ml Balance 300 ml medications Current Medications Medications Dose Ordered Sig/Lynn Route Start Time Stop Time Status Last Admin Dose Admin Acetaminophen 650 mg Q6HP PRN PO 11/16/24 22:15 11/17/24 02:04 650 MG Acetaminophen/ Hydrocodone Bitart 1 tab Q4HP PRN PO 11/16/24 22:15 Ondansetron HCl 4 mg Q4HPRN PRN IV 11/17/24 07:15 Albuterol 2.5 mg Q4HPRN PRN NEB 11/17/24 07:45 Ergocalciferol 50,000 unit Q7D PO 11/17/24 13:00 UNV Examination Morbidly obese woman lying in the bed comfortably, no acute distress General: Obese, afebrile, palor, mucosae are moist Cardiovascular: Regular S1 and S2. No murmurs, gallops or rubs. No JVD elevation. No pedal edema Respiratory: Normal B/L air entry on room air. Clear lung sounds on auscultation Abdomen: Soft, right upper quadrant tenderness, nondistended, normoactive bowel sounds, no rebound tenderness, no organomegaly, no masses Genitourinary: Deferred MSK/skin: Mobilizes 4 limbs. Skin is dry and warm Neurological: No motor, no sensitive deficits, normal speech. Pupils are isocoric and reactive. Psych/Mental Status: A/Ox3 laboratory and microbiology Laboratory Tests 11/17/24 05:27 Test 11/17/24 05:27 Range/Units Serum Glucose 94 74-106 mg/dL Labs and/or images reviewed: Labs reviewed by me, Image(s) reviewed by me Problem List/Assessment/Plan Problem List/Assessment/Plan Intractable abdominal pain likely secondary to biliary colic Symptomatic Cholelithiasis Rule out acute cholecystitis Transaminitis secondary to above Ruled out acute pancreatitis Vitamin-D deficiency Plan- Adequate IV fluids NPO until HIDA scan Ultrasound shows cholelithiasis, no signs of cholecystitis or negative Carias's. Pain control with Tylenol for mild, [place] for moderate pain Vitamin-D supplemented Follow up with a HIDA scan Plan discussed with patient in which all questions have been answered Goals of care discussed for more than 20 minutes, full code status Case discussed with Dr. Maya Plan discussed with: Patient My Orders My Orders Orders - BRITTNEE ACEVES RESIDENT Procedure Category Date Status Time Nm Hida Scan NM 11/17/24 Logged 07:03 Gamma Glutamyl LAB 11/17/24 In Process Transpeptidase 07:03 Blood Alcohol LAB 11/17/24 In Process 07:03 Magnesium LAB 11/17/24 In Process 07:03 Ondansetron Hcl PHA 11/17/24 In Process (Zofran) 07:15 Albuterol Medneb PHA 11/17/24 In Process (Ventolin Medneb) 07:45 Ergocalciferol PHA 11/17/24 Logged (Vitamin D 50,000 13:00 Date of Service: Nov 17, 2024 Billing Provider: MADY MAYA MD Common Visit Codes: [id number] INP/OBS CARE(HIGH) Secondary Visit Codes: [id number] CARE PLAN 30 MINUTES BRITTNEE ACEVES RESIDENT Nov 17, 2024 13:03 MADY MAYA MD Nov 17, 2024 20:51
[2024-11-17] MEDS: ERGOCALCIFEROL 50,000 UNIT(1.25MG) CAP PO SCH (14:27)
[2024-11-17 15:34] LABS: Blood Alcohol 4.5 mg/dL (<10)
--- NOTE | 2024-11-17 16:48 | DVH ---
EXAM: NM NM HIDA SCAN History: cholecystitis Comparison Study: None TECHNIQUE: Following intravenous administration of 6.5 mCi of Tc-99m mebrofenin (Choletec), dynamic sequential images of the right upper abdomen were acquired for 60 minutes. Additional 5 hour delayed planar image in the lateral right upper quadrant was also obtained. [ FINDINGS: The liver demonstrates prompt radiotracer uptake with clearance from blood pool. No focal perfusion d efects were noted. There was prompt excretion of the radiotracer into the biliary tree, without evide nce of biliary dilatation or obstruction. There was no filling of the gallbladder. IMPRESSION: 1. Nonvisualized gallbladder, consistent with acute cholecystitis.
[2024-11-17] MEDS: ONDANSETRON HCL 4 MG/2 ML VIAL IV PRN (23:46)
[2024-11-18] VITALS (13 sets, daily range): BP systolic 96–134; BP diastolic 55–78; PULSE 66–98; RESP 16–22; TEMP 97.3–99.3; O2SAT 92–99
[2024-11-18 05:13] LABS: Basophils # (auto) 0 10 ^3/uL (0-0.2); Basophils % (auto) 0.2 % (0.0-2.0); Eosinophils # (auto) 0.1 10 ^3/uL (0-0.8); Eosinophils % (auto) 1.5 % (0.0-7.0); Lymphocytes # (auto) 0.9 10 ^3/uL (0.4-5.4); Lymphocytes % (auto) 12.7 % (10.0-50.0); Mean Corpuscular Hemoglobin 31.6 pg (28.0-32.0); Mean Corpuscular Hgb Conc. 34.2 g/dL (32.0-36.0); Mean Corpuscular Volume 92.6 fL (80.0-100.0); Monocytes # (auto) 0.6 10 ^3/uL (0-1.3); Monocytes % (auto) 7.9 % (0.0-12.0); Neutrophils # (auto) 5.7 10 ^3/uL (1.6-8.6); Neutrophils % (auto) 77.7 % (37.0-80.0); Platelet Count (auto) 143 10^3/uL (140-450); Red Blood Cells 4.75 10^6/uL (4.0-5.20); Red Cell Distribution Width 13.4 % (11.8-14.3); White Blood Cell 7.3 10^3/uL (4.4-10.8)
[2024-11-18 05:21] LABS: Anion Gap 9 (5-15); Carbon Dioxide 27 mmol/L (20-31); Chloride 105 mmol/L (98-107); Potassium 4.2 mmol/L (3.5-5.1); Sodium 141 mmol/L (136-145)
[2024-11-18 05:23] LABS: Calcium 9.1 mg/dL (8.7-10.4)
[2024-11-18 05:27] LABS: BUN/Creatinine Ratio 6.8 (10.0-20.0)
[2024-11-18 05:30] LABS: Blood Urea Nitrogen 5 mg/dL (9-23); Glucose 107 mg/dL (74-106)
[2024-11-18] MEDS ORDERED: DEXTROSE (50%) 50ML SYRG IV PRN (09:45)
[2024-11-18 09:55] LABS: Albumin 4.2 g/dL (3.2-4.8); Total Protein 6.3 g/dL (5.7-8.2)
[2024-11-18 10:00] LABS: Bilirubin, Direct 0.5 mg/dL (<0.3); Bilirubin, Total 1.7 mg/dL (0.2-1.0)
[2024-11-18] MEDS: ACETAMINOPHEN 325 MG TAB PO ONE (10:09)
[2024-11-18] MEDS: SODIUM CHLORIDE 0.9% 1,000 ML IV ONE (10:12)
[2024-11-18] MEDS: PANTOPRAZOLE 40 MG/10 ML VIAL INJ IV SCH (10:18)
[2024-11-18 10:53] LABS: Partial Thromboplastin Time 28.1 SEC (24.5-34.5); Prothrombin Time 10.6 sec (9.3-11.8)
[2024-11-18 11:13] LABS: Hepatitis A Ab IgM Negative; Hepatitis B Core IgM Negative (Negative); Hepatitis B Surface Antigen Negative (Negative); Hepatitis C Antibody Negative (Negative)
[2024-11-18 11:14] LABS: Hepatitis B Surface Antigen Negative (Negative); Hepatitis C Antibody Negative (Negative)
[2024-11-18] MEDS: ACCU-CHEK COMFORT CURVE STRIP VI SCH (12:24)
[2024-11-18] MEDS: cefTRIAXone 1GM/50ML D5W 50 ML IV ONE (12:24)
--- NOTE | 2024-11-18 12:47 | DVHINCON2 ---
Date of service: Nov 18, 2024 History of Present Illness 54-year-old female with a history of heart murmur admitted secondary to bilateral upper quadrant abdominal pain associated with nausea. Patient denies any fevers or chills. Past Medical History hypertension, dyslipidemia, asthma, degenerative disc disease, history of heart murmur Past Surgical History Hysterectomy Family History: Diabetes mellitus G8 FATHER Gout G8 BROTHER Hypertension G8 FATHER G8 BROTHER Family History Noncontributory Social History Reports alcohol use. Denies any IV or tobacco use Allergies: Coded Allergies: NO KNOWN ALLERGIES (Unverified , 07/30/15) Home Meds Reported Medications Atorvastatin Calcium (Lipitor) 80 Mg Tab, 1 TAB PO DAILY, #30 TAB 5 Refills 11/17/24 Metoprolol Succinate (Metoprolol Succinate Er) 25 Mg Tab, 1 TAB PO DAILY 11/17/24 Atorvastatin Calcium (ATORVASTATIN CALCIUM) 80 Mg Tab, 1 TAB PO DAILY 11/17/24 Albuterol Sulfate (Albuterol Sulfate Hfa) 108 Mcg/Act Aer, INH 11/17/24 Current Medications Current Medications Medications (Trade) Dose Ordered Sig/Lynn Route PRN Reason Start Time Stop Time Status Last Admin Ergocalciferol (Vitamin D 50,000 Unit) 50,000 unit Q7D PO 11/17/24 13:00 11/17/24 14:13 DC Ergocalciferol (Vitamin D 50,000 Unit) 50,000 unit Q7D PO 11/17/24 13:15 11/17/24 14:27 Pantoprazole Sodium (Protonix) 40 mg DAILY IV 11/18/24 10:00 11/18/24 10:18 Diagnostic Test (Pha) (Accu-Chek Comfort Curve T) 1 strip Q6HR 11/18/24 12:00 11/18/24 12:24 Dextrose 50 ml UD PRN IV Blood Sugar LESS THAN 60 11/18/24 09:45 Ceftriaxone Sodium 50 ml @ 100 mls/hr DAILY@09 IV 11/19/24 09:00 Metronidazole 100 ml @ 100 mls/hr Q8HR IV 11/18/24 14:00 Vital Signs Vital Signs Date Time Temp Pulse Resp B/P (MAP) Pulse Ox O2 Delivery O2 Flow Rate FiO2 11/18/24 09:02 98.2 71 18 127/78 (94) 97 98.2 11/18/24 08:18 Room Air* 0 21 Physical Exam GEN: Age-appropriate female in no acute distress. Alert. HEENT: Normocephalic atraumatic. Moist mucous membranes. Anicteric sclerae. CV: RRR Respiratory: CTAB ABD: Slightly obese abdomen with epigastric and right upper quadrant tenderness to palpation without guarding or rebound. Abdominal ultrasound: Cholelithiasis with thickened gallbladder wall. Common bile duct and 0.59 mm. HIDA scan shows nonvisualization gallbladder consistent with cystic duct obstruction or acute cholecystitis. Labs/Diagnostic Data Labs Test 11/18/24 10:04 11/18/24 09:47 11/18/24 04:38 11/17/24 07:50 Range/Units POC Glucose 101 70-106 mg/dl Prothrombin Time 10.6 9.3-11.8 sec Prothrombin Time INR 1.00 0.9-1.15 Activated Partial Thromboplast Time 28.1 24.5-34.5 SEC White Blood Count 7.3 # 4.4-10.8 10^3/uL Red Blood Count 4.75 4.0-5.20 10^6/uL Hemoglobin 15.0 12.2-16.2 g/dL Hematocrit 44.0 36.0-46.0 % Mean Corpuscular Volume 92.6 80.0-100.0 fL Mean Corpuscular Hemoglobin 31.6 28.0-32.0 pg Mean Corpuscular Hemoglobin Concent 34.2 32.0-36.0 g/dL Red Cell Distribution Width 13.4 11.8-14.3 % Platelet Count 143 140-450 10^3/uL Mean Platelet Volume 10.8 6.9-10.8 fL Neutrophils (%) (Auto) 77.7 37.0-80.0 % Lymphocytes (%) (Auto) 12.7 10.0-50.0 % Monocytes (%) (Auto) 7.9 0.0-12.0 % Eosinophils (%) (Auto) 1.5 0.0-7.0 % Basophils (%) (Auto) 0.2 0.0-2.0 % Neutrophils # (Auto) 5.7 1.6-8.6 10 ^3/uL Lymphocytes # (Auto) 0.9 0.4-5.4 10 ^3/uL Monocytes # (Auto) 0.6 0-1.3 10 ^3/uL Eosinophils # (Auto) 0.1 0-0.8 10 ^3/uL Basophils # (Auto) 0 0-0.2 10 ^3/uL Nucleated Red Blood Cells 0.0 % Sodium Level 141 136-145 mmol/L Potassium Level 4.2 3.5-5.1 mmol/L Chloride Level 105 98-107 mmol/L Carbon Dioxide Level 27 20-31 mmol/L Anion Gap 9 5-15 Blood Urea Nitrogen 5 L 9-23 mg/dL Creatinine 0.74 # 0.550-1.02 mg/dL Glomerular Filtration Rate Calc 95 >90 mL/min BUN/Creatinine Ratio 6.8 L 10.0-20.0 Serum Glucose 107 H 74-106 mg/dL Calcium Level 9.1 8.7-10.4 mg/dL Total Bilirubin 1.7 H 0.2-1.0 mg/dL Direct Bilirubin 0.5 H <0.3 mg/dL Aspartate Amino Transferase (AST) 29 <34 U/L Alanine Aminotransferase (ALT) 62 H 7-40 U/L Alkaline Phosphatase 124 H 46-116 U/L Total Protein 6.3 5.7-8.2 g/dL Albumin 4.2 3.2-4.8 g/dL Lactic Acid Level 0.7 0.4-2.0 mmol/L Test 11/17/24 05:27 11/16/24 16:19 11/16/24 15:22 11/16/24 14:57 Range/Units Magnesium Level 2.1 1.6-2.6 mg/dL Gamma Glutamyl Transpeptidase 165 H <38 U/L Vitamin B12 Level 547 211-911 pg/mL Vitamin D 25-Hydroxy 18.7 L 30.0-100 ng/mL Thyroid Stimulating Hormone (TSH) 0.77 0.55-4.78 uIU/mL Plasma/Serum Blood Alcohol 4.5 <10 mg/dL Hepatitis B Surface Antigen Negative Negative Hepatitis C Antibody Negative Negative Troponin I High Sensitivity 3 L </=34 ng/L Triglycerides Level 87 < 150 mg/dL Cholesterol Level 154 < 200 mg/dL LDL Cholesterol 81 < 100 mg/dL HDL Cholesterol 55 40-59 mg/dL Hemoglobin A1c 5.4 <5.7 % A1C Lipase 29 12-53 U/L Hepatitis A IgM Antibody Negative Hepatitis B Core IgM Antibody Negative Negative Urine Color Yellow Yellow Urine Clarity Turbid H Clear Urine pH 8.5 5.0-9.0 Urine Specific [place] 1.023 1.001-1.035 Urine Protein Trace H Negative Urine Ketones Negative Negative Urine Blood Negative Negative /uL Urine Nitrite Negative Negative Urine Bilirubin Negative Negative Urine Urobilinogen Normal Negative mg/dL Urine Leukocyte Esterase Negative Negative /uL Urine RBC 2 0 - 4 /hpf Urine Microscopic WBC 3 0-5 /HPF Urine Squamous Epithelial Cells Mod <5 /hpf Urine Amorphous Crystals Few None Seen /hpf Urine Bacteria Few H None Seen /hpf Urine Mucus Few None Seen Urine Glucose Normal Normal mg/dL Urine Opiates Screen Neg NEGATIVE Urine Fentanyl Screen Neg NEGATIVE Urine Barbiturates Screen Neg NEGATIVE Urine Phencyclidine Screen Neg NEGATIVE Urine Amphetamines Screen Neg NEGATIVE Urine Benzodiazepines Screen Neg NEGATIVE Urine Cocaine Screen Neg NEGATIVE Urine Cannabinoids Screen Neg NEGATIVE Assessment 1. Acute cholecystitis Plan/Recommendation 1. Laparoscopic cholecystectomy possible open surgery Informed consent: The surgery and its risks including but not limited to infection, bleeding requiring possible blood transfusion with the risk of hepatitis or HIV infection, possible open surgery, possible cystic duct leak or retained common bile duct stone requiring further intervention such as an ERCP, possible perioperative [place] or stroke were explained to the patient. All questions were answered to her satisfaction. She expressed verbal understanding and wished to proceed with the surgery. Plan discussed with: Patient, Other (mom) JA CRAIG MD Nov 18, 2024 12:47
[2024-11-18] MEDS ORDERED: METOCLOPRAMIDE HCL 5MG/ml INJ 2ml VIAL IV ONE (13:15)
[2024-11-18] MEDS ORDERED: PROPOFOL 10 MG/ML 20 ML IV ONE (13:18)
[2024-11-18] MEDS ORDERED: fentaNYL CITRATE 100 MCG/2 ML VL ONE (13:18)
[2024-11-18] MEDS ORDERED: ROCURONIUM 10MG/ML 10ML VIAL IV ONE (13:18)
[2024-11-18] MEDS ORDERED: MIDAZOLAM HCL 2MG/2ML 2ml VIAL (1mg/ml) ONE (13:18)
[2024-11-18] MEDS ORDERED: DexAMETHasone SOD PHOS 10MG/1ML VIAL INJ ONE (13:42)
[2024-11-18] MEDS ORDERED: SUGAMMADEX 200mg/2ml Vial (100MG/ML) IV ONE (13:42)
[2024-11-18] MEDS ORDERED: ONDANSETRON HCL 4 MG/2 ML VIAL ONE (13:42)
[2024-11-18] MEDS ORDERED: ALBUTEROL SULFATE 90 MCG MDI IN ONE (13:55)
[2024-11-18] MEDS: metroNIDAZOLE 500MG/100ML 100 ML IV SCH (14:00)
[2024-11-18] MEDS: LIDOCAINE 1%-Mpf/Epinephrine 1:200,000 30ml VIAL ONE (14:33)
--- NOTE | 2024-11-18 15:06 | DVHOP2 ---
Operative Report - 2 Report Details Date: 11/18/24 Preop Diagnosis: Acute cholecystitis Postop Diagnosis: Same Surgeon: Ja Rodriguez MD Manager Of Distribution: None Anesthesiologist: Martinez Rock CRNA Anesthesia: General, Local Drains: 15 Taj[place] Campbell drain in the right upper quadrant Consent: The surgery and its risks including but not limited to infection, bleeding requiring possible blood transfusion with the risk of hepatitis or HIV infection, possible open surgery, possible cystic duct leak or retained common bile duct stone requiring further intervention such as an ERCP, possible perioperative SD or stroke were explained to the patient. All questions were answered to her satisfaction. She expressed verbal understanding and wished to proceed with the surgery. Complications: None Estimated Blood Loss: 50 mL Fluids: 1100 mL Name of Procedure Performed Laparoscopic cholecystectomy Procedure Details Procedure Details: After induction of general anesthesia, patient's abdomen was prepped and draped in standard surgical fashion. A small supraumbilical incision was made and this incision was taken through the abdominal wall down to the fascia which was opened using electrocautery. Peritoneum was then bluntly divided gaining access to the intra-abdominal cavity. Interrupted 0 Vicryl sutures were placed through the fascial incision and using an open technique, Jammie trocar was introduced and secured using the Vicryl sutures. Abdomen was then insufflated to 15 mmHg and camera was inserted. Visual examination of the intestine under the fascial incision appeared normal without injury. Under direct visualization, a 5 mm bladeless trocar was placed in the subxiphoid region and two additional 5 mm bladeless trocars were placed in the right upper quadrant all under direct visualization. Examination of the right upper quadrant revealed a very distended inflamed gallbladder. An endo needle was used to decompress the gallbladder and the gallbladder was then grasped and retracted in a cephalad direction. Infundibulum was retracted laterally and careful blunt dissection wa s performed to identify the cystic duct which appeared normal in size. This was clipped and divided using Endoclips without complication. The cystic artery was located just next to the cystic duct and this was also clipped and divided using Endoclips without complication. Gallbladder was then removed from the liver bed using electrocautery. There was very small amount of bile spillage but no stones were lost. Gallbladder was then removed from the abdominal cavity using an endo pouch bag and sent off the surgical field. Abdomen was then re- insufflated and hemostasis in the liver bed was achieved using electrocautery. Rimma hemostatic powder was sprayed onto the gallbladder fossa for additional hemostasis. A 15 Taj[place] Campbell drain was placed into the right upper quadrant and brought out through the 5 mm lateral trocar site and secured to the skin using 3-0 nylon sutures. Restless trocars were then removed under direct visualization as the abdomen was deflated. Additional interrupted 0 Vicryl sutures were placed through the supraumbilical fascial incision and the sutures were tied down closing off the supraumbilical fascia. Surgical sites were irrigated injected with 20 mL of 0.25% Marcaine with epinephrine. Skin incisions were closed using rosa. Surgical sites were cleaned and dried and dressings were applied. Sponge, needle, instrument count at the end of the case were reported to be correct by the nursing staff. The patient tolerated procedure well and was awakened, extubated and transferred to recovery in stable condition. Specimen: Gallbladder Condition Stable Disposition Still a Patient JA RODRIGUEZ MD Nov 18, 2024 15:06
--- NOTE | 2024-11-18 15:15 | DVHPNRES ---
Progress Note Date Seen: Nov 18, 2024 Resident Creating Document: BRITTNEE ACEVES RESIDENT Medical Necessity Reason Pt with a Central, PICC or Fol: No Subjective Review of Systems This is a 54-year-old female with past medical history of hypertension, dyslipidemia, asthma, degenerative disc disease, history of heart murmur if who presented to the ED with chief complaint of acute abdominal pain. The patient states that the symptoms started overnight and early the morning before coming to the ED. the patient states that the pain is localized in the epigastric and right upper quadrant region of the abdomen that radiates towards the right upper back. The patient described the pain as a cramping type of pain rated as a 7/10 on the pain scale. The patient also reports sore throat nausea but no vomiting. Patient states that eating does not change the pattern rate the pain. The patient denies chest pain, shortness of breath, fever/chills, diarrhea or any other additional symptoms. Patient states that last bowel movement was yesterday but had failed constipated recently. Upon admission, CBC and CMP were grossly unremarkable except for the total bilirubin, AST, ALT and alkaline phosphatase which were all elevated. Initial CT scan of the abdomen and pelvis showing large stool burden throughout the colon but no additional findings. Based on altered labs we ordered right upper quadrant ultrasound to rule out choledocholithiasis but ultrasound showed cholelithiasis with thickened gallbladder wall but no dilated common bile duct. We will start the patient on IV fluids, pain medications and we will admit the patient for further assessment and management. Past medical history: Hypertension, dyslipidemia, asthma, degenerative disc disease, heart murmur Home medications: Metoprolol succinate 25 mg daily, atorvastatin 80 mg daily, albuterol rescue inhaler, budesonide 0.5 mg b.i.d. Surgical history: Hysterectomy, colonoscopy Social history: Denies drug consumption, alcohol or smoking. 11/17 - Patient seen and examined at the bedside. HIDA scan showed acute cholecystitis, consulted surgeon. 11/18 - seen and examined. ALP up trending, patient underwent laparoscopic cholecystectomy Objective vital signs Vital Sign Date Time Temp Pulse Resp B/P (MAP) Pulse Ox O2 Delivery O2 Flow Rate FiO2 11/18/24 14:54 81 18 102/57 (72) 98 11/18/24 14:44 97.7 97.7 11/18/24 14:44 Mask 10.0 98 Total Intake and Output 11/17/24 11/17/24 11/18/24 15:00 23:00 07:00 Intake Total 120 ml 0 ml 600 ml Output Total 3 ml Balance 120 ml -3 ml 600 ml medications Current Medications Medications Dose Ordered Sig/Lynn Route Start Time Stop Time Status Last Admin Dose Admin Acetaminophen 650 mg Q6HP PRN PO 11/16/24 22:15 11/18/24 10:07 650 MG Acetaminophen/ Hydrocodone Bitart 1 tab Q4HP PRN PO 11/16/24 22:15 Ondansetron HCl 4 mg Q4HPRN PRN IV 11/17/24 07:15 11/17/24 23:46 4 MG Ergocalciferol 50,000 unit Q7D PO 11/17/24 13:15 11/17/24 14:27 50,000 UNIT Pantoprazole Sodium 40 mg DAILY IV 11/18/24 10:00 11/18/24 10:18 40 MG Diagnostic Test (Pha) 1 strip Q6HR 11/18/24 12:00 11/18/24 12:24 1 STRIP Dextrose 50 ml UD PRN IV 11/18/24 09:45 Ceftriaxone Sodium 50 ml @ 100 mls/hr DAILY@09 IV 11/19/24 09:00 Metronidazole 100 ml @ 100 mls/hr Q8HR IV 11/18/24 14:00 Examination Morbidly obese woman lying in the bed comfortably, no acute distress General: Obese, afebrile, palor, mucosae are moist Cardiovascular: Regular S1 and S2. No murmurs, gallops or rubs. No JVD elevation. No pedal edema Respiratory: Normal B/L air entry on room air. Clear lung sounds on auscultation Abdomen: Soft, right upper quadrant tenderness, nondistended, normoactive bowel sounds, no rebound tenderness, no organomegaly, no masses Genitourinary: Deferred MSK/skin: Mobilizes 4 limbs. Skin is dry and warm Neurological: No motor, no sensitive deficits, normal speech. Pupils are isocoric and reactive. Psych/Mental Status: A/Ox3 laboratory and microbiology Laboratory Tests 11/18/24 04:38 Test 11/18/24 04:38 Range/Units Serum Glucose 107 H 74-106 mg/dL Labs and/or images reviewed: Labs reviewed by me, Image(s) reviewed by me Problem List/Assessment/Plan Problem List/Assessment/Plan Intractable abdominal pain likely secondary to acute cholecystitis Acute cholecystitis status post laparoscopic cholecystectomy Symptomatic Cholelithiasis Transaminitis secondary to above Ruled out acute pancreatitis Vitamin-D deficiency Plan- Status post laparoscopic cholecystectomy, on clear liquid diet. IV ceftriaxone and IV metronidazole Adequate IV fluids Protonix 40 mg daily Ultrasound shows cholelithiasis, no signs of cholecystitis or negative Carias's. Pain control with Tylenol for mild, [place] for moderate pain Vitamin-D supplemented Plan discussed with patient in which all questions have been answered Goals of care discussed for more than 20 minutes, full code status Case discussed with Dr. Maya Plan discussed with: Patient My Orders My Orders Orders - BRITTNEE ACEVES Procedure Category Date Status Time Accucheck BD 11/18/24 Transmitted 09:42 Sodium Chloride 0.9% PHA 11/18/24 In Process 09:45 Pantoprazole PHA 11/18/24 In Process (Protonix) 10:00 Glucose Blood PHA 11/18/24 In Process (Accu-Chek Comfort 12:00 Dextrose 50% Syringe PHA 11/18/24 In Process 09:45 Ceftriaxone 1gm/50ml PHA 11/19/24 In Process D5w (Rocephin) 09:00 Metronidazole PHA 11/18/24 In Process 500mg/100ml (Flagyl 14:00 Dietary Evaluation Review Comments: Advance to diet as tolerated when medically feasible Expected Outcomes/Goals: avoid high fat food, gradual wt loss Date of Service: Nov 18, 2024 Billing Provider: MADY MAYA MD Common Visit Codes: [id number] INP/OBS CARE(HIGH) BRITTNEE ACEVES RESIDENT Nov 18, 2024 15:15 MADY MAYA MD Nov 19, 2024 21:55
[2024-11-18] MEDS: HYDROmorphone HCL 2 MG/ML VL/or syr IV PRN ×2 (15:17→20:59)
[2024-11-18] MEDS: HYDROmorphone HCL 2 MG/ML VL/or syr ONE (15:27)
[2024-11-18] MEDS: ONDANSETRON HCL 4 MG/2 ML VIAL IV ONE (15:41)
[2024-11-18] MEDS: ACETAMINOPHEN IV 100 ML IV ONE (15:43)
[2024-11-18] MEDS: ACETAMINOPHEN IV 1000 MG/100ML (10MG/ML) IV ONE (15:43)
[2024-11-18] MEDS: KETOROLAC TROMETH 30 MG/ML 1ML VIAL IV ONE (16:00)
[2024-11-18] MEDS: KETOROLAC TROMETH 30 MG/ML 1ML VIAL ONE (16:00)
[2024-11-18] MEDS ORDERED: MORPHINE SULFATE INJ 2 MG/ml SYRG IV PRN (16:15)
[2024-11-18] MEDS: HYDROcodone-ACET 5/325MG TAB PO PRN (17:43)
[2024-11-19] VITALS (8 sets, daily range): BP systolic 106–130; BP diastolic 51–63; PULSE 66–76; RESP 17–21; TEMP 95.7–97.9; O2SAT 91–97
[2024-11-19 05:49] LABS: Basophils # (auto) 0 10 ^3/uL (0-0.2); Eosinophils # (auto) 0 10 ^3/uL (0-0.8); Hematocrit 41.7 % (36.0-46.0); Hemoglobin 14.2 g/dL (12.2-16.2); Lymphocytes # (auto) 0.5 10 ^3/uL (0.4-5.4); Lymphocytes % (auto) 7.5 % (10.0-50.0); Mean Corpuscular Hemoglobin 31.6 pg (28.0-32.0); Mean Corpuscular Volume 93.1 fL (80.0-100.0); Monocytes # (auto) 0.1 10 ^3/uL (0-1.3); Monocytes % (auto) 2.2 % (0.0-12.0); Neutrophils # (auto) 5.5 10 ^3/uL (1.6-8.6); Neutrophils % (auto) 90.3 % (37.0-80.0); Nucleated Red Blood Cells % 0.1 %; Platelet Count (auto) 126 10^3/uL (140-450); Red Blood Cells 4.48 10^6/uL (4.0-5.20); Red Cell Distribution Width 13.1 % (11.8-14.3); White Blood Cell 6.1 10^3/uL (4.4-10.8)
[2024-11-19 06:02] LABS: Calcium 9.5 mg/dL (8.7-10.4); Carbon Dioxide 25 mmol/L (20-31); Chloride 106 mmol/L (98-107)
[2024-11-19 06:03] LABS: Alanine Aminotransferase 53 U/L (7-40); Alkaline Phosphatase 127 U/L (46-116); Anion Gap 10 (5-15); Aspartate Aminotransferase 27 U/L (<34); BUN/Creatinine Ratio 14.3 (10.0-20.0); Blood Urea Nitrogen 8 mg/dL (9-23); Glucose 110 mg/dL (74-106); Potassium 4.6 mmol/L (3.5-5.1); Sodium 141 mmol/L (136-145)
[2024-11-19 06:04] LABS: Bilirubin, Total 0.8 mg/dL (0.2-1.0)
[2024-11-19] MEDS: cefTRIAXone 1GM/50ML D5W 50 ML IV SCH (10:02)
--- NOTE | 2024-11-19 15:09 | DVHPNRES ---
Progress Note Date Seen: Nov 19, 2024 Resident Creating Document: JOSUE AMEZQUITA RESIDENT Medical Necessity Reason Pt with a Central, PICC or Fol: No Subjective Review of Systems Patient seen and examined at bedside, s/p cholecystectomy yesterday, drain tube present and draining serosanguineous fluid, appropriate tenderness on surgical site. No signs symptoms of infection. Objective vital signs Vital Sign Date Time Temp Pulse Resp B/P (MAP) Pulse Ox O2 Delivery O2 Flow Rate FiO2 11/19/24 13:10 97.9 70 20 121/51 (74) 97 97.9 11/19/24 08:05 Room Air* 0 21 Total Intake and Output 11/18/24 11/18/24 11/19/24 14:59 22:59 06:59 Intake Total 100 ml 300 ml 750 ml Output Total 0 ml 15 ml Balance 100 ml 300 ml 735 ml medications Current Medications Medications Dose Ordered Sig/Lynn Route Start Time Stop Time Status Last Admin Dose Admin Acetaminophen 650 mg Q6HP PRN PO 11/16/24 22:15 11/18/24 10:07 650 MG Acetaminophen/ Hydrocodone Bitart 1 tab Q4HP PRN PO 11/16/24 22:15 11/18/24 17:43 1 TAB Ondansetron HCl 4 mg Q4HPRN PRN IV 11/17/24 07:15 11/18/24 20:58 4 MG Ergocalciferol 50,000 unit Q7D PO 11/17/24 13:15 11/17/24 14:27 50,000 UNIT Pantoprazole Sodium 40 mg DAILY IV 11/18/24 10:00 11/19/24 10:02 40 MG Diagnostic Test (Pha) 1 strip Q6HR 11/18/24 12:00 11/19/24 12:00 1 STRIP Dextrose 50 ml UD PRN IV 11/18/24 09:45 Ceftriaxone Sodium 50 ml @ 100 mls/hr DAILY@09 IV 11/19/24 09:00 11/19/24 10:02 100 MLS/HR Metronidazole 100 ml @ 100 mls/hr Q8HR IV 11/18/24 14:00 11/19/24 14:30 100 MLS/HR Hydromorphone HCl 0.5 mg Q4HPRN PRN IV 11/18/24 16:15 11/19/24 04:28 0.5 MG Examination General: Obese, afebrile, palor, mucosae are moist Cardiovascular: Regular S1 and S2. No murmurs, gallops or rubs. No JVD elevation. No pedal edema Respiratory: Normal B/L air entry on room air. Clear lung sounds on auscultation Abdomen: drain tube present and draining serosanguineous fluid, Soft, right upper quadrant tenderness, nondistended, normoactive bowel sounds, MSK/skin: Mobilizes 4 limbs. Skin is dry and warm Neurological: No motor, no sensitive deficits, normal speech. Pupils are isocoric and reactive. Psych/Mental Status: A/Ox3 laboratory and microbiology Laboratory Tests 11/19/24 05:08 Test 11/19/24 05:08 Range/Units Serum Glucose 110 H 74-106 mg/dL Problem List/Assessment/Plan Problem List/Assessment/Plan Intractable abdominal pain likely secondary to acute cholecystitis Acute cholecystitis status post laparoscopic cholecystectomy Symptomatic Cholelithiasis Transaminitis secondary to above Ruled out acute pancreatitis Vitamin-D deficiency Plan- Status post laparoscopic cholecystectomy, drain tube present and draining serosanguineous fluid, appropriate tenderness on surgical site. No signs symptoms of infection. Advanced diet to soft diet IV ceftriaxone and IV metronidazole Adequate IV fluids Protonix 40 mg daily Ultrasound shows cholelithiasis, no signs of cholecystitis or negative Carias's. Pain control with Tylenol for mild, [place] for moderate pain Vitamin-D supplemented Goals of care discussed for 16 minutes, full code status Case discussed with Dr. Maya Plan discussed with: Patient My Orders My Orders Orders - JOSUE AMEZQUITA RESIDENT Procedure Category Date Status Time Basic Metabolic Panel LAB 11/20/24 Verified 04:00 Complete Blood Count LAB 11/20/24 Verified 04:00 Soft Diet DIET 11/19/24 Transmitted Dinner Dietary Evaluation Review Comments: Advance to diet as tolerated when medically feasible Expected Outcomes/Goals: avoid high fat food, gradual wt loss Date of Service: Nov 19, 2024 Billing Provider: MADY MAYA MD Common Visit Codes: [id number] INP/OBS CARE(HIGH) JOSUE AMEZQUITA RESIDENT Nov 19, 2024 15:09 MADY MAYA MD Nov 19, 2024 21:56
[2024-11-20] VITALS (10 sets, daily range): BP systolic 111–137; BP diastolic 56–76; PULSE 77–101; RESP 14–19; TEMP 97.2–98.1; O2SAT 88–99
[2024-11-20 08:01] LABS: Basophils # (auto) 0 10 ^3/uL (0-0.2); Basophils % (auto) 0.1 % (0.0-2.0); Eosinophils # (auto) 0.1 10 ^3/uL (0-0.8); Eosinophils % (auto) 1.1 % (0.0-7.0); Hematocrit 42.2 % (36.0-46.0); Hemoglobin 14.4 g/dL (12.2-16.2); Lymphocytes # (auto) 1.4 10 ^3/uL (0.4-5.4); Lymphocytes % (auto) 22.2 % (10.0-50.0); Mean Corpuscular Hemoglobin 31.3 pg (28.0-32.0); Mean Corpuscular Hgb Conc. 34.2 g/dL (32.0-36.0); Mean Corpuscular Volume 91.7 fL (80.0-100.0); Monocytes # (auto) 0.5 10 ^3/uL (0-1.3); Monocytes % (auto) 8.3 % (0.0-12.0); Neutrophils # (auto) 4.4 10 ^3/uL (1.6-8.6); Neutrophils % (auto) 68.3 % (37.0-80.0); Nucleated Red Blood Cells % 0.1 %; Red Cell Distribution Width 13.4 % (11.8-14.3); White Blood Cell 6.4 10^3/uL (4.4-10.8)
[2024-11-20 08:10] LABS: Anion Gap 13 (5-15); Carbon Dioxide 25 mmol/L (20-31); Potassium 4.1 mmol/L (3.5-5.1)
[2024-11-20 08:11] LABS: Calcium 9.5 mg/dL (8.7-10.4)
[2024-11-20 08:14] LABS: Chloride 109 mmol/L (98-107); Sodium 147 mmol/L (136-145)
[2024-11-20 08:16] LABS: Glucose 92 mg/dL (74-106)
[2024-11-20 08:17] LABS: BUN/Creatinine Ratio 19.4 (10.0-20.0); Blood Urea Nitrogen 14 mg/dL (9-23)
[2024-11-20 08:27] LABS: Platelet Count (auto) 112 10^3/uL (140-450)
[2024-11-20 10:20] LABS: Albumin 4.1 g/dL (3.2-4.8); Bilirubin, Direct 0.2 mg/dL (<0.3); Bilirubin, Total 0.5 mg/dL (0.2-1.0); Total Protein 6.1 g/dL (5.7-8.2)
[2024-11-20] MEDS: ALBUTEROL SULF 2.5 MG/0.5ML(0.5%) NEB SOLN NEB ONE (10:48)
[2024-11-20] MEDS: IPRATROPIUM BROM 0.5 MG/2.5ML INH SOL NEB ONE (10:48)
[2024-11-20] MEDS ORDERED: CHOL20007 OR (11:51)
--- NOTE | 2024-11-20 11:51 | DVHPN2 ---
Progress Note - Dictate Date Seen: Nov 20, 2024 Medical Necessity Reason Pt with a Central, PICC or Fol: No Subjective E: low saturations o/n. no complaints. adelso po. IS only 500 mL. vital signs Vital Sign Date Time Temp Pulse Resp B/P (MAP) Pulse Ox O2 Delivery O2 Flow Rate FiO2 11/20/24 09:07 97.6 93 19 137/76 (96) 91 97.6 11/20/24 08:05 Nasal Cannula* 2 28 Total Intake and Output 11/19/24 11/19/24 11/20/24 15:00 23:00 07:00 Intake Total 340 ml 700 ml Output Total 5 ml Balance 335 ml 700 ml medications Current Medications Medications Dose Ordered Sig/Lynn Route Start Time Stop Time Status Last Admin Dose Admin Acetaminophen 650 mg Q6HP PRN PO 11/16/24 22:15 11/18/24 10:07 650 MG Acetaminophen/ Hydrocodone Bitart 1 tab Q4HP PRN PO 11/16/24 22:15 11/19/24 23:55 1 TAB Ondansetron HCl 4 mg Q4HPRN PRN IV 11/17/24 07:15 11/18/24 20:58 4 MG Ergocalciferol 50,000 unit Q7D PO 11/17/24 13:15 11/17/24 14:27 50,000 UNIT Pantoprazole Sodium 40 mg DAILY IV 11/18/24 10:00 11/19/24 10:02 40 MG Diagnostic Test (Pha) 1 strip Q6HR 11/18/24 12:00 11/19/24 17:46 1 STRIP Dextrose 50 ml UD PRN IV 11/18/24 09:45 Ceftriaxone Sodium 50 ml @ 100 mls/hr DAILY@09 IV 11/19/24 09:00 11/19/24 10:02 100 MLS/HR Metronidazole 100 ml @ 100 mls/hr Q8HR IV 11/18/24 14:00 11/19/24 22:21 100 MLS/HR Hydromorphone HCl 0.5 mg Q4HPRN PRN IV 11/18/24 16:15 11/19/24 04:28 0.5 MG Albuterol 2.5 mg Q4HR NEB 11/20/24 14:00 Ipratropium [place] 0.5 mg Q4HWA NEB 11/20/24 14:00 objective GEN: NAD ABD: surgical dressings clean and dry. laboratory and microbiology Laboratory Tests 11/20/24 05:26 Test 11/20/24 05:26 Range/Units Serum Glucose 92 74-106 mg/dL Assessment/Plan A: 1. s/p lap cholecystectomy POD #2 P: 1. encourage IS and ambulation. 2. stable from surgery POV. 3. if DC'ed, f/u next week in clinic. call [phone] for f/u appt on Thursday. 4. remove bandages tonight and shower. ok to get incisions and drain wet starting tonight. Dietary Evaluation Review Comments: Advance to diet as tolerated when medically feasible Expected Outcomes/Goals: avoid high fat food, gradual wt loss Plan discussed with: Patient JA CRAIG MD Nov 20, 2024 11:51
--- NOTE | 2024-11-20 11:51 | DVHDSRES ---
Discharge Summary Date of Admission Resident Creating Document: BRITTNEE ACEVES RESIDENT Nov 16, 2024 at 22:07 Date of Discharge: Nov 20, 2024 Labs/Diagnostic Data: Laboratory Results Test 11/20/24 05:26 11/19/24 20:37 11/18/24 09:47 11/17/24 07:50 White Blood Count 6.4 10^3/uL (4.4-10.8) Red Blood Count 4.60 10^6/uL (4.0-5.20) Hemoglobin 14.4 g/dL (12.2-16.2) Hematocrit 42.2 % (36.0-46.0) Mean Corpuscular Volume 91.7 fL (80.0-100.0) Mean Corpuscular Hemoglobin 31.3 pg (28.0-32.0) Mean Corpuscular Hemoglobin Concent 34.2 g/dL (32.0-36.0) Red Cell Distribution Width 13.4 % (11.8-14.3) Platelet Count 112 10^3/uL (140-450) Mean Platelet Volume 11.0 fL (6.9-10.8) Neutrophils (%) (Auto) 68.3 % (37.0-80.0) Lymphocytes (%) (Auto) 22.2 % (10.0-50.0) Monocytes (%) (Auto) 8.3 % (0.0-12.0) Eosinophils (%) (Auto) 1.1 % (0.0-7.0) Basophils (%) (Auto) 0.1 % (0.0-2.0) Neutrophils # (Auto) 4.4 10 ^3/uL (1.6-8.6) Lymphocytes # (Auto) 1.4 10 ^3/uL (0.4-5.4) Monocytes # (Auto) 0.5 10 ^3/uL (0-1.3) Eosinophils # (Auto) 0.1 10 ^3/uL (0-0.8) Basophils # (Auto) 0 10 ^3/uL (0-0.2) Nucleated Red Blood Cells 0.1 % Sodium Level 147 mmol/L (136-145) Potassium Level 4.1 mmol/L (3.5-5.1) Chloride Level 109 mmol/L (98-107) Carbon Dioxide Level 25 mmol/L (20-31) Anion Gap 13 (5-15) Blood Urea Nitrogen 14 mg/dL (9-23) Creatinine 0.72 mg/dL (0.550-1.02) Glomerular Filtration Rate Calc 98 mL/min (>90) BUN/Creatinine Ratio 19.4 (10.0-20.0) Serum Glucose 92 mg/dL (74-106) Calcium Level 9.5 mg/dL (8.7-10.4) Total Bilirubin 0.5 mg/dL (0.2-1.0) Direct Bilirubin 0.2 mg/dL (<0.3) Aspartate Amino Transferase (AST) 15 U/L (<34) Alanine Aminotransferase (ALT) 46 U/L (7-40) Alkaline Phosphatase 114 U/L (46-116) Total Protein 6.1 g/dL (5.7-8.2) Albumin 4.1 g/dL (3.2-4.8) POC Glucose 135 mg/dl (70-106) Prothrombin Time 10.6 sec (9.3-11.8) Prothrombin Time INR 1.00 (0.9-1.15) Activated Partial Thromboplast Time 28.1 SEC (24.5-34.5) Lactic Acid Level 0.7 mmol/L (0.4-2.0) Test 11/17/24 05:27 11/16/24 16:19 11/16/24 15:22 11/16/24 14:57 Magnesium Level 2.1 mg/dL (1.6-2.6) Gamma Glutamyl Transpeptidase 165 U/L (<38) Vitamin B12 Level 547 pg/mL (211-911) Vitamin D 25-Hydroxy 18.7 ng/mL (30.0-100) Thyroid Stimulating Hormone (TSH) 0.77 uIU/mL (0.55-4.78) Plasma/Serum Blood Alcohol 4.5 mg/dL (<10) Hepatitis B Surface Antigen Negative (Negative) Hepatitis C Antibody Negative (Negative) Troponin I High Sensitivity 3 ng/L (</=34) Triglycerides Level 87 mg/dL (< 150) Cholesterol Level 154 mg/dL (< 200) LDL Cholesterol 81 mg/dL (< 100) HDL Cholesterol 55 mg/dL (40-59) Hemoglobin A1c 5.4 % A1C (<5.7) Lipase 29 U/L (12-53) Hepatitis A IgM Antibody Negative Hepatitis B Core IgM Antibody Negative (Negative) Urine Color Yellow (Yellow) Urine Clarity Turbid (Clear) Urine pH 8.5 (5.0-9.0) Urine Specific [place] 1.023 (1.001-1.035) Urine Protein Trace (Negative) Urine Ketones Negative (Negative) Urine Blood Negative /uL (Negative) Urine Nitrite Negative (Negative) Urine Bilirubin Negative (Negative) Urine Urobilinogen Normal mg/dL (Negative) Urine Leukocyte Esterase Negative /uL (Negative) Urine RBC 2 /hpf (0 - 4) Urine Microscopic WBC 3 /HPF (0-5) Urine Squamous Epithelial Cells Mod /hpf (<5) Urine Amorphous Crystals Few /hpf (None Seen) Urine Bacteria Few /hpf (None Seen) Urine Mucus Few (None Seen) Urine Glucose Normal mg/dL (Normal) Urine Opiates Screen Neg (NEGATIVE) Urine Fentanyl Screen Neg (NEGATIVE) Urine Barbiturates Screen Neg (NEGATIVE) Urine Phencyclidine Screen Neg (NEGATIVE) Urine Amphetamines Screen Neg (NEGATIVE) Urine Benzodiazepines Screen Neg (NEGATIVE) Urine Cocaine Screen Neg (NEGATIVE) Urine Cannabinoids Screen Neg (NEGATIVE) Other Laboratory Tests 11/20/24 05:26 Brief Hx & Hospital Course: This is a 54-year-old female with past medical history of hypertension, dyslipidemia, asthma, degenerative disc disease, history of heart murmur if who presented to the ED with chief complaint of acute abdominal pain. The patient states that the symptoms started overnight and early the morning before coming to the ED. the patient states that the pain is localized in the epigastric and right upper quadrant region of the abdomen that radiates towards the right upper back. The patient described the pain as a cramping type of pain rated as a 7/10 on the pain scale. The patient also reports sore throat nausea but no vomiting. Patient states that eating does not change the pattern rate the pain. The patient denies chest pain, shortness of breath, fever/chills, diarrhea or any other additional symptoms. Patient states that last bowel movement was yesterday but had failed constipated recently. Upon admission, CBC and CMP were grossly unremarkable except for the total bilirubin, AST, ALT and alkaline phosphatase which were all elevated. Initial CT scan of the abdomen and pelvis showing large stool burden throughout the colon but no additional findings. Based on altered labs we ordered right upper quadrant ultrasound to rule out choledocholithiasis but ultrasound showed cholelithiasis with thickened gallbladder wall but no dilated common bile duct. We will start the patient on IV fluids, pain medications and we will admit the patient for further assessment and management. Past medical history: Hypertension, dyslipidemia, asthma, degenerative disc disease, heart murmur Home medications: Metoprolol succinate 25 mg daily, atorvastatin 80 mg daily, albuterol rescue inhaler, budesonide 0.5 mg b.i.d. Surgical history: Hysterectomy, colonoscopy Social history: Denies drug consumption, alcohol or smoking. During the hospitalization, CT abdomen pelvis showed no findings of bowel obstruction. Large stool burden. No calcified gallstones. Ultrasound liver showed Cholelithiasis with thickened gallbladder wall. Negative sonographic eli's sign and no dilated common bile duct, subsequently HIDA scan was completed which showed Nonvisualized gallbladder, consistent with acute cholecystitis. Surgeon was consulted and patient underwent laparoscopic cholecystectomy, drain was placed which was draining serosanguineous fluid. Appropriate tenderness around surgical site. Patient was started on diet, which he tolerated well. IV ceftriaxone and metronidazole were continued throughout the stay. She received IV fluids and Protonix. Patient was ambulating, having bowel movements. 11/20-patient is hemodynamically stable, clinically stable, therefore she has been discharged home with the instructions to follow up with surgeon as outpatient, primary care physician within 7 days and discharge clinic within 7 days. Patient agreed to discharge planning. Consults/Reason for consult Surgeon consulted for cholecystitis Operations or Procedures Operative Report - 2 Report Details Date: 11/18/24 Preop Diagnosis: Acute cholecystitis Postop Diagnosis: Same Surgeon: Ja Craig MD Control Equipment Electrician: None Anesthesiologist: Martinez Rock CRNA Anesthesia: General, Local Drains: 15 Canadian Campbell drain in the right upper quadrant Consent: The surgery and its risks including but not limited to infection, bleeding requiring possible blood transfusion with the risk of hepatitis or HIV infection, possible open surgery, possible cystic duct leak or retained common bile duct stone requiring further intervention such as an ERCP, possible perioperative PR or stroke were explained to the patient. All questions were answered to her satisfaction. She expressed verbal understanding and wished to proceed with the surgery. Complications: None Estimated Blood Loss: 50 mL Fluids: 1100 mL Name of Procedure Performed Laparoscopic cholecystectomy Procedure Details Procedure Details: After induction of general anesthesia, patient's abdomen was prepped and draped in standard surgical fashion. A small supraumbilical incision was made and this incision was taken through the abdominal wall down to the fascia which was opened using electrocautery. Peritoneum was then bluntly divided gaining access to the intra-abdominal cavity. Interrupted 0 Vicryl sutures were placed through the fascial incision and using an open technique, Jammie trocar was introduced and secured using the Vicryl sutures. Abdomen was then insufflated to 15 mmHg and camera was inserted. Visual examination of the intestine under the fascial incision appeared normal without injury. Under direct visualization, a 5 mm bladeless trocar was placed in the subxiphoid region and two additional 5 mm bladeless trocars were placed in the right upper quadrant all under direct visualization. Examination of the right upper quadrant revealed a very distended inflamed gallbladder. An endo needle was used to decompress the gallbladder and the gallbladder was then grasped and retracted in a cephalad direction. Infundibulum was retracted laterally and careful blunt dissection was performed to identify the cystic duct which appeared normal in size. This was clipped and divided using Endoclips without complication. The cystic artery was located just next to the cystic duct and this was also clipped and divided using Endoclips without complication. Gallbladder was then removed from the liver bed using electrocautery. There was very small amount of bile spillage but no stones were lost. Gallbladder was then removed from the abdominal cavity using an endo pouch bag and sent off the surgical field. Abdomen was then re- insufflated and hemostasis in the liver bed was achieved using electrocautery. Rimma hemostatic powder was sprayed onto the gallbladder fossa for additional hemostasis. A 15 [place] Campbell drain was placed into the right upper quadrant and brought out through the 5 mm lateral trocar site and secured to the skin using 3-0 nylon sutures. Restless trocars were then removed under direct visualization as the abdomen was deflated. Additional interrupted 0 Vicryl sutures were placed through the supraumbilical fascial incision and the sutures were tied down closing off the supraumbilical fascia. Surgical sites were irrigated injected with 20 mL of 0.25% Marcaine with epinephrine. Skin incisions were closed using rosa. Surgical sites were cleaned and dried and dressings were applied. Sponge, needle, instrument count at the end of the case were reported to be correct by the nursing staff. The patient tolerated procedure well and was awakened, extubated and transferred to recovery in stable condition. Specimen: Gallbladder Condition Stable Disposition 2 Still a Patient JA CRAIG MD Nov 18, 2024 15:06 DICTATED BY:JA CRAIG MD DICTATED DATE/TIME:11/18/24 1506 ELECTRONICALLY SIGNED BY:JA CRAIG MD 11/18/24 1506 ELECTRONICALLY CO-SIGNED BY: Condition at Discharge: Stable Final Diagnosis/Problems List Intractable abdominal pain likely secondary to acute cholecystitis Acute cholecystitis status post laparoscopic cholecystectomy Symptomatic Cholelithiasis Transaminitis secondary to above Ruled out acute pancreatitis Vitamin-D deficiency Discharge Disposition: Home Discharge Instruct/Medications Diet: See Comment Diet comment: Avoid fatty fried food Activity: Light activity Follow Up/Referral: Follow up with surgeon as outpatient within 7 days Follow up with [facility] clinic Follow up primary care physician Medications: Tylenol as needed for pain control Discharge Statement: "Patient was advised to return to the ER or call 911 if any headaches, dizziness, shortness of breath, chest pain, abdominal pain, bleeding, fevers, or worsening of medical condition. Patient was counseled about treatment plan, medications, possible side effects, patientverbalized understanding. All questions were answered to the best of my ability. This discharge took greater then 30 minutes in planning, reviewing documentation, counseling the patient, and discussing with other team members." ASSESSMENT ASSESSMENT Assessment Intractable abdominal pain likely secondary to acute cholecystitis Acute cholecystitis status post laparoscopic cholecystectomy Date of Service: Nov 20, 2024 Billing Provider: MADY ALCANTARA MD Common Visit Codes: 76853-DBG/OBS DISCH DAY >30min BRITTNEE ACEVES RESIDENT Nov 20, 2024 11:51 MADY ALCANTARA MD Nov 22, 2024 21:00
--- NOTE | 2024-11-20 12:43 | DVH ---
CHEST RADIOGRAPH Indication: desat Technique: Single frontal view of the chest was obtained COMPARISON: CHEST XRAY 1 VIEW on DOS: 06/18/21 FINDINGS: Lines and Tubes: None Lungs: Diffuse interstitial prominence. Hazy bibasilar opacities. Pleura: No pneumothorax. Indistinctness of the costophrenic sulci. Cardiomediastinal contours: Mild enlargement of the cardiac silhouette. Bones: Unremarkable IMPRESSION: Findings suggestive of mild pulmonary edema and small bilateral pleural effusions.
[2024-11-20] MEDS ORDERED: IPRATROPIUM BROM 0.5 MG/2.5ML INH SOL NEB SCH (14:00)
[2024-11-20] MEDS ORDERED: ALBUTEROL SULF 2.5 MG/0.5ML(0.5%) NEB SOLN NEB SCH (14:00)
== END 2024-11-20 14:10 | disposition home or self-care (01) | DRG 263 ==
LOC: ER 14:36 → OVERFLOW 22:07 → CENTRAL 23:49
PROVIDERS: ADMIT Internal Medicine Geriatric Medicine; ATTEND Emergency Medicine
PROC: 0FT44ZZ Resection of Gallbladder, Percutaneous Endoscopic Approach (ICD-10-PCS; principal; 2024-11-18 13:26)
DX: K80.00 Calculus of gallbladder with acute cholecystitis without obstruction (principal); J81.1 Chronic pulmonary edema; J90 Pleural effusion, not elsewhere classified; E55.9 Vitamin D deficiency, unspecified; J45.909 Unspecified asthma, uncomplicated; I10 Essential (primary) hypertension; K59.00 Constipation, unspecified; E78.5 Hyperlipidemia, unspecified; R79.89 Other specified abnormal findings of blood chemistry; Z90.710 Acquired absence of both cervix and uterus; Z83.3 Family history of diabetes mellitus; Z82.49 Family history of ischemic heart disease and other diseases of the circulatory system; Z82.69 Family history of other diseases of the musculoskeletal system and connective tissue
CPT/HCPCS: 36415; 71045; 74176; 76705; 78226; 80048; 80053; 80061; 80074; 80076; 80307; 80320; 81001; 82306; 82607; 82962; 82977; 83036; 83605; 83690; 83735; 84443; 84484; 85025; 85610; 85730; 86803; 86850; 86900; 86901; 87340; 93005; 94640; 96360; 97163; G0378; J0131; J1100; J1885; J2250; J2405; J2470; J2704; J3490